=== PATIENT | female | born 1970 | race Caucasian/White ===

== ENCOUNTER 2019-10-17 14:16 | Emergency (ER) | payer BC, SELFPAY ==
[2019-10-17 14:40] VITALS: BP 140/96; PULSE 64; RESP 16; TEMP 36.5; O2SAT 99; BMI 47.9
[2019-10-17] MEDS: ketorolac 30 mg/mL INJ IVP (15:10)
--- NOTE | 2019-10-17 15:10 | CTR_ITS ---
PROCEDURE INFORMATION: Exam: CT Abdomen And Pelvis With Contrast Exam date and time: 10/17/2019 4:31 PM Age: 48 years old Clinical indication: Abdominal pain; Flank; Left; Prior surgery; Surgery date: 6+ months; Surgery type: Gb, gastric bypass; Additional info: Abd pain TECHNIQUE: Imaging protocol: Computed tomography of the abdomen and pelvis with intravenous contrast. Total DLP: 2114.31 mGy-cm Radiation optimization: All CT scans at this facility use at least one of these dose optimization techniques: automated exposure control; mA and/or kV adjustment per patient size (includes targeted exams where dose is matched to clinical indication); or iterative reconstruction. Contrast material: OMNI 300; Contrast volume: 95 ml; Contrast route: LT AC; COMPARISON: No relevant prior studies available. FINDINGS: Liver: 3.4 cm mildly hypodense solid mass subphrenic aspect of right hepatic lobe and posterior aspect of left hepatic lobe worrisome for primary or secondary neoplasms. Probable 9 and 10 mm hypodense left hepatic lobe cysts. Gallbladder and bile ducts: Prior cholecystectomy. Pancreas: Normal. No ductal dilation. Spleen: Spleen contains several calcified granulomas. Adrenals: Normal. No mass. Kidneys and ureters: Three obstructing stones proximal left ureter. Largest ureteral stone measures 1.1 cm. Mild left-sided hydronephrosis. Additional nonobstructing renal stones larger and more numerous on the left. Stomach and bowel: Prior gastric bypass surgery. No bowel dilatation or obstruction evident. Appendix: No evidence of appendicitis. Intraperitoneal space: Unremarkable. No free air. No significant fluid collection. Vasculature: Unremarkable. No abdominal aortic aneurysm. Lymph nodes: Unremarkable. No enlarged lymph nodes. Bladder: Unremarkable as visualized. Reproductive: Unremarkable as visualized. Bones/joints: Unremarkable. No acute fracture. Soft tissues: 7.6 x 10 cm fat containing umbilical hernia. Herniated fat displays areas of haziness and hernia sac contains some dependent fluid worrisome for strangulation. CT/CT abdomen pelvis w con* [id number] IMPRESSION: 1.) 7.6 x 10 cm fat containing umbilical hernia. Herniated fat displays areas of haziness and hernia sac contains some dependent fluid worrisome for strangulation. 2.)Three obstructing stones proximal left ureter. Largest ureteral stone measures 1.1 cm. Mild left-sided hydronephrosis. Additional nonobstructing renal stones larger and more numerous on the left. 3.)3.4 cm mildly hypodense solid mass subphrenic aspect of right hepatic lobe and posterior aspect of left hepatic lobe worrisome for primary or secondary neoplasms. Probable 9 and 10 mm hypodense left hepatic lobe cysts. 4.) Prior gastric bypass surgery. Radiation Dose CTDIVOL = (mGy): DLP = 2114.31 (mGy-cm)
[2019-10-17 15:13] VITALS: RESP 18
[2019-10-17 15:13] LABS: Basophils # 0.1 10^3/uL (0.0-0.1); Basophils % 0.8 %; Eosinophils # 0.1 10^3/uL (0.0-0.8); Eosinophils % 0.7 %; Hematocrit 44.8 % (37.0-47.0); Hemoglobin 14.8 g/dL (11.5-15.3); Lymphocytes # 3.7 10^3/uL (0.8-4.8); Lymphocytes % 30.1 %; Mean Corpuscular Hemoglobin 28.8 pg (28.0-34.0); Mean Corpuscular Volume 87.2 fL (81-99); Mean Platelet Volume 9.7 fL (7.4-10.4); Monocytes # 0.7 10^3/uL (0.2-0.9); Monocytes % 5.9 %; Neutrophils # 7.6 10^3/uL (1.8-7.7); Nucleated Red Blood Cells % 0 %; Platelet Count 327 10^3/cmm (130-400); Red Blood Count 5.14 10^6/uL (4.1-5.3); Red Cell Distribution Width 14.1 % (12.1-15.1); White Blood Count 12.3 10^3/uL (4.0-10.0)
[2019-10-17] MEDS: morphine 4 mg/mL SDV 1 mL IVP (15:13)
[2019-10-17] MEDS: sodium chloride 0.9% 1,000 ML 999 ML IV (15:13)
[2019-10-17] MEDS: ondansetron 2 mg/ML SDV 2 mL 4 MG IVP (15:13)
[2019-10-17 15:14] VITALS: RESP 18
--- NOTE | 2019-10-17 15:16 | ED_ITS ---
HPI - Abdominal Pain General: Chief Complaint: Urogenital-Female Stated Complaint: back and abd pain Time Seen by Provider: 10/17/19 14:26 History of Present Illness: HPI narrative: Patient states she had just finished eating some coleslaw and had sudden onset of severe abdominal pain in the epigastric region that radiated through to her back. MD elicited complaint: abdominal pain Pertinent past history: none Onset (ago): minute(s) Pain Consistency: constant Location: Epigastric Severity: severe Quality: stabbing, aching, sharp and burning Radiation: back Exacerbating factors: nothing Relieving factors: nothing Associated Symptoms: Reports nausea and vomiting Review of Systems 2 General: Reports: 10 or more systems reviewed and unremarkable except in HPI and below GI: Reports: abdominal pain, nausea and vomiting PFSH ED PFSH: Social History Smoking and tobacco status: never smoked Physical Exam Const: COMMON NORMALS: oriented x3 and alert GENERAL APPEARANCE: in distress and ill appearing Neck/C-Spine: COMMON NORMALS: no JVD Resp: COMMON NORMALS: normal respiratory effort, no retractions and no use of accessory muscles Cardio: COMMON NORMALS: no JVD, regular rate and regular rhythm RATE: regular rate RHYTHM: regular rhythm GI: COMMON NORMALS: soft to palpation and no hepatosplenomegaly INSPECTION: Yes central obesity AUSCULTATION: Yes normoactive bowel sounds PALPATION: Yes soft, Yes tender, Yes guarding, No rigid and Yes no hepatosplenomegaly Extremity: COMMON NORMALS: normal to inspection and full ROM Neuro: COMMON NORMALS: oriented x3 SENSORIUM/ORIENTATION: Yes alert Skin: COMMON NORMALS: no rashes or lesions noted, no wounds, skin turgor normal, no jaundice, no petechiae and no mottling GENERAL SKIN EXAM: no rashes or lesions noted and turgor normal Course Vital Signs: Vital signs: Vital Signs Temperature 97.7 F 10/17/19 14:40 Pulse Rate 64 10/17/19 14:40 Respiratory Rate 18 10/17/19 15:14 Blood Pressure 140/96 10/17/19 14:40 Pulse Oximetry 99 10/17/19 14:40 MDM - Abdominal Pain Lab Data: Labs: Lab Results 10/17/19 Range/Units 15:00 WBC 12.3 H (4.0-10.0) 10^3/ uL RBC 5.14 (4.1-5.3) 10^6/u L Hgb 14.8 (11.5-15.3) g/dL Hct 44.8 (37.0-47.0) % MCV 87.2 (81-99) fL MCH 28.8 (28.0-34.0) pg MCHC 33.0 (30.0-36.0) g/dL RDW 14.1 (12.1-15.1) % Plt Count 327 (130-400) 10^3/c mm MPV 9.7 (7.4-10.4) fL Neut % (Auto) 62.0 % Lymph % (Auto) 30.1 % Towns % (Auto) 5.9 % Eos % (Auto) 0.7 % Baso % (Auto) 0.8 % Neut # (Auto) 7.6 (1.8-7.7) 10^3/u L Lymph # (Auto) 3.7 (0.8-4.8) 10^3/u L Towns # (Auto) 0.7 (0.2-0.9) 10^3/u L Eos # (Auto) 0.1 (0.0-0.8) 10^3/u L Baso # (Auto) 0.1 (0.0-0.1) 10^3/u L Nucleated RBC % (a uto) 0 % Nucleated RBCs # 0.0 /100WBC Discharge Plan Discharge Prescriptions: No Action trazodone 100 mg tablet 100 mg PO DAILY RF: 0 Augmentin 875-125 mg Tablet 1 tab PO BID RF: 0 Celexa PO DAILY RF: 0 Coding Level of Care Code ED Senior [employer] Acquisition Specialist for Samantha Shaw
[2019-10-17 15:33] LABS: Alanine Aminotransferase 30 U/L (0-33); Albumin Level 4.3 g/dL (3.5-5.2); Alkaline Phosphatase 156 IU/L (35-105); Anion Gap 18.7 (5-19); Aspartate Amino Transferase 20 U/L (0-32); Blood Urea Nitrogen 15 mg/dL (6-20); Calcium 9.8 mg/dL (8.5-10.5); Carbon Dioxide 25 mmol/L (22-29); Chloride 100 mmol/L (98-107); Globulin 3.2 g/dL (1.3-4.6); Glomerular Filtration Rate 59.2 mL/min (90-130); Glucose 126 mg/dL (65-115); Lipase 25 U/L (13-60); Osmolality Calculated 288 mOsm/kg (285-295); Potassium 3.7 mmol/L (3.5-5.1); Sodium 140 mmol/L (136-145); Total Bilirubin 0.4 mg/dL (0.15-1.2); Total Protein 7.5 g/dL (6.6-8.7)
[2019-10-17 16:20] LABS: Lactate (Lactic Acid level) 2.5 mmol/L (0.5-2.2)
[2019-10-17] MEDS: iohexol 300 mg/mL 100 mL Btl IV (16:41)
[2019-10-17] MEDS: lidocaine 2% viscous 15 ML, aluminum-mag hydrox-simethicon 30 ML, sucralfate oral liq 1 GM PO (16:49)
[2019-10-17 17:44] VITALS: BP 128/83; PULSE 70; RESP 16; O2SAT 97
== END 2019-10-17 17:44 | disposition home or self-care (01) ==
PROVIDERS: Emergency Provider Family Medicine; Family Provider Family Medicine; PCP Family Medicine
DX: K29.00 Acute gastritis without bleeding (principal)
CPT/HCPCS: 12345; 36415; 74177; 80053; 83605; 83690; 85025; 87040; 96361; 96374; 96375; 99282; 99283; J1885; J2270; J2405; J7030; Q9967

== ENCOUNTER 2019-10-25 10:43 | Outpatient (CLI) | payer BC, SELFPAY ==
--- NOTE | 2019-10-25 | MR_ITS ---
WS: [id number] INDICATION: Liver mass TECHNIQUE: MRI of the abdomen without and with gadolinium enhancement. Axial T2, axial dual Echo, axi al 2-D fiesta, coronal 2-D fiesta, axial T1 and multiplanar post gadolinium imaging with fat saturati on technique FINDINGS: Comparison CT October 17, 2019 Again seen are the focal hepatic lesions involving the right hepatic lobe measuring 3.7 x 2.9 cm and left hepatic lobe posteriorly measuring 2.6 x 2.8 cm. These demonstrate T2 hyperintensity with periph eral globular enhancement on the postgadolinium images. Findings are most typical for benign cavernou s hemangiomas. No intrahepatic biliary ductal dilatation. A few additional scattered subcentimeter T2 hyperintense c ompatible with hepatic cysts and small hemangiomas. Normal spleen. Prior gastric bypass surgery. Adrenal glands are normal. Normal caliber abdominal aort a. No abdominal lymphadenopathy. Tiny bilateral pleural effusions. Small pericardial effusion. Mild l eft hydronephrosis with partially visualized obstructing calculus is seen on the recent CT MR/MR abdomen wo/w con* [id number] IMPRESSION: 1. Again seen are the 2 previously described right and left hepatic lesions wh ich today demonstrate characteristics most compatible with benign cavernous hem angiomas. This could be further evaluated with ultrasound for confirmation. Ot errodney recommend 3-6 month follow-up CT abdomen pelvis with liver protocol to c onfirm stability 2. Several additional tiny T2 hyperintense lesions in both hepatic lobes some of which appear to represent tiny cavernous hemangiomas and small hepatic cysts . 3. Mild left hydronephrosis with obstructing left ureteral calculus as seen on the recent CT. 4. Trace bilateral pleural effusions. 5. Small pericardial effusion.
== END 2019-10-25 10:44 | disposition home or self-care (01) ==
LOC: RADSHAW 10:43
PROVIDERS: Family Provider Family Medicine; PCP Family Medicine; Visit Provider Family Medicine
DX: K76.89 Other specified diseases of liver (principal); N13.30 Unspecified hydronephrosis; J90 Pleural effusion, not elsewhere classified; I31.3 Pericardial effusion (noninflammatory)
CPT/HCPCS: 74183; A9579

== ENCOUNTER 2019-10-28 08:02 | Outpatient (CLI) | payer BC, SELFPAY ==
--- NOTE | 2019-10-28 08:00 | XR_ITS ---
WS: [id number] ABDOMEN KUB CLINICAL INFORMATION: Renal/ureteral calculi. COMPARISON: CT October 17, 2019 postoperative changes at the GE junction. Left proximal ureteral calcul us FINDINGS: Stable large calculi in the left proximal ureter measuring 16 mm and 11 mm unchanged from recent CT. Stable left renal parenchymal calculi. Cholecystectomy clips. Postoperative changes the GE junction. XR/XR KUB [id number] Impression: Stable large calculus in the left proximal ureter measuring 16 mm and 11 mm unc hanged from recent CT.
== END 2019-10-28 08:03 | disposition home or self-care (01) ==
PROVIDERS: Family Provider Family Medicine; PCP Family Medicine; Visit Provider Urology
DX: N20.1 Calculus of ureter (principal)
CPT/HCPCS: 74018; 81001

== ENCOUNTER 2019-11-01 05:50 | Day surgery (SDC) | payer BC, SELFPAY ==
[2019-10-29 10:09] VITALS: BMI 47.1
[2019-11-01] VITALS (9 sets, daily range): BP systolic 125–156; BP diastolic 77–105; PULSE 56–93; RESP 20–23; TEMP 36.1–37.2; O2SAT 93–98
--- NOTE | 2019-11-01 06:11 | XR_ITS ---
WS: [id number] ABDOMEN: SUPINE FILM HISTORY: renal stones COMPARISON: 10/28/2019 and 10/16/2019 Normal bowel gas pattern. Prior cholecystectomy. Numerous surgical sutures are noted within the LEFT upper abdomen. Right kidney: No renal or ureteral stone identified. Left kidney: There are numerous calcifications again identified in the mid LEFT ureter. The largest m easures 19 mm in length. There is a smaller adjacent calcifications measuring 11 mm. These calcificat ions within the ureter at the level of L3-4. Additional calcifications unchanged scattered in the LEF T renal pelvis. There is an additional calcification in the LEFT pelvis that was not seen on the CT f rom 10/17/2019. May have been present on the radiograph of 10/28/2019 but better seen today. This calci fication measures 6 mm. XR/XR KUB portable [id number] IMPRESSION: 1. Large calcifications in the mid LEFT ureter are unchanged with the largest measuring 19 mm. 2. Additional 6 mm calcification in the LEFT true pelvis. May be a calcificati on that has migrated inferiorly into the ureter. 3. Additional nonobstructing LEFT renal calcifications.
--- NOTE | 2019-11-01 06:11 | ANES.PREANE2 ---
Pre-Anesthetic Assessment Pre-Anesthetic Assessment: Height/Weight: Height 1.73 m Weight 140.614 kg Preop Diagnosis: 2 large left mid ureteral calculi Proposed Procedure: Operation Date: 11/01/19 07:00 Proposed Procedures p Cystoscopy 01765 99382 N20.1 N20.0(Not Applicable) - MD dany Noonan Ureteral Stent Placement(Not Applicable) - MD dany Noonan ESWL(Not Applicable) - MD dany Noonan poss Ureteroscopy(Not Applicable) - Paul Slaughter MD Familial anesthetic complications: None Was Beta Michelle taken within 24 hours: N/A Last intake: NPO > 8 hrs Social: Social History: No alcohol and No tobacco Exam: Pre-Anes Outpt Exam: alert, oriented x 3, clear to auscultation bilaterally and regular rate & rhythm Airway: Cervical ROM: WNL Dentition: Full Pulmonary: Pulmonary: Asthma CV/HEM: CV/HEM: None reported : : None reported Hepatic: Hepatic: None reported GI: GI: None reported Metabolic: Metabolic: Morbid obesity Musc/skel: Musc/skel: None reported Neuropsych: Neuropsych: None reported Anesthetic Plan: ASA status: 2 Anesthesia: General Risk of > 500 ml blood loss (7ml/kg in children): No PFSH Anesthesia PFSH: Medical History (Updated 10/28/19 @ 09:42 by Paul Slaughter MD) Depression Left renal stone Morbid obesity Ureteral calculus Surgical History (Updated 10/28/19 @ 09:42 by Paul Slaughter MD) Gastric bypass status for obesity Hx of cholecystectomy Hx of laparoscopic gastric banding Hx of tonsillectomy Family History (Updated 10/28/19 @ 08:43 by Arminda Box LPN) Father , at age 66 Heart disease Mother Hypertension Emphysema of lung COPD (chronic obstructive pulmonary disease) Social History (Updated 10/28/19 @ 08:44 by Arminda Box LPN) Smoking and tobacco status: never smoked Alcohol intake: never Marital status: Current occupational status: employed History of recent travel: No Data Anesthesia Cardiac Studies: No Data to Display
[2019-11-01] MEDS: sodium chloride 0.9% 1,000 ML 30 ML IV (06:46)
[2019-11-01] MEDS: levofloxacin-dextrose 5 % 500 MG/100 ML PREMIX 100 MG IV (07:00)
--- NOTE | 2019-11-01 07:03 | W.PM.OPSUD ---
Surgery/Procedure H&P Update DATE OF PROCEDURE: November 01, 2019 DATE H&P PERFORMED: 10/28/19 H&P UPDATE INFORMATION: I have reviewed H&P completed within last 30 days and I have examined patient prior to procedure CHANGES TO PREVIOUS DOCUMENTATION: There is a small calcification that could be in the area of the left distal ureter. When compared to the CT scan there was no calcification in that area and or outside of the ureter. There was a hint of a smaller stone below the 2 larger stones in the left mid to proximal ureter. For that reason we will add retrograde ureteropyelogram to the procedure and consider ureteroscopy of that calcification if it is intraureteral and still proceed as expected with the larger proximal ureteral stones. I reviewed this with the patient and she was in agreement. This still fits within the boundaries of our prior consent. PREOP DIAGNOSIS: 2 large left mid ureteral calculi PLANNED PROCEDURE: Operation Date: 11/01/19 07:00 Proposed Procedures p Cystoscopy 78603 29917 N20.1 N20.0(Not Applicable) - Paul Slaughter MD s Ureteral Stent Placement(Not Applicable) - Paul Slaughter MD s ESWL(Not Applicable) - Paul Slaughter MD s poss Ureteroscopy(Not Applicable) - Paul Slaughter MD
[2019-11-01] MEDS: iohexol 300 mg/mL 50 mL Btl (OR ONLY) XX (07:31)
--- NOTE | 2019-11-01 08:26 | P.OP_ITS ---
Operative Report Date of procedure: November 01, 2019 Pre-op Diagnosis: 2 large left mid ureteral calculi Post-op Diagnosis: 1. 2 large left mid ureteral calculi 2. Moderate-sized left DISTAL ureteral calculus 3. 2 distinct stones in the left kidney (left lower pole, left midpole) Procedure Done: 1. Cystoscopy with left retrograde ureteropyelogram, ureteroscopy and stone manipulation. 2. Left ureteral stent placement (6 Wallisian by 30 cm double-pigtail without string) 3. Extracorporeal shockwave lithotripsy to 2 large left mid ureteral stones, left lower pole stone, left mid interpolar stone Implants: Left ureteral stent Pathology: Stone from the left distal ureter Surgeon: Kasandra Ict Trainer: Lithotripsy Photography Editor: Roby Fortune Anesthesia: General Estimated blood loss: None Urine output: Not measured Complications: None Findings: 1. The stone suspected on the preop KUB was confirmed with ureteroscopy and removed. 2. The 2 large stones broke up well. The more proximal stone migrated to the UPJ. The 2 left renal calculi noted on preop CT scan also broke up well. 3. Stent left indwelling at the completion of the procedure Condition: stable Disposition: PACU Brief History: Mrs. Rosario is a very pleasant 49-year-old white female who recently presented to my office with complaints of left renal colic with a large stone burden defined by 2 large stones in the left mid ureter and 2 stones in the left kidney. She was scheduled for cystoscopy, stent placement, possible ureteroscopy, ESWL. The preop KUB showed a suspicious calcification in the left DISTAL ureter that was when reevaluated not present on the CT scan. Plans were made on day of surgery to consider ureteroscopy if retrograde showed that stone to remove it while the other stones were being treated. Procedure: After routine preoperative evaluation examination and obtaining of informed consent she was taken to the operating suite on 11/01/2019 where general anesthesia was administered without difficulty after appropriate timeout was performed, SCDs confirmed to be functioning, preoperative antibiotics administered, beta-keya protocol confirmed. Prepped and draped in the usual sterile fashion in dorsolithotomy position pain careful attention to avoiding pressure points. 21 Wallisian cystoscope with 30 degree lens was introduced into the urethral meatus and advanced into the bladder under videoscopic. No stones were seen in the bladder. Bladder was grossly normal. An 8 Wallisian cone-tip catheter was intubated to the left ureter orifice for left retrograde ureteropyelogram: The left distal ureter showed a filling defect consistent with the stone seen on KUB. The ureter proximal to the stone was dilated. The more proximal stones were easily identified as intraluminal as expected A flexible tip guidewire was then easily passed up the left ureter into the up per pole calyx and the distal ureter was dilated with a 15 Wallisian 4 cm balloon with no waist at 4 elijah of pressure. Patient was repositioned such that the lower of the 2 stones was at the focal point utilizing biplanar fluoroscopy. It looked as though the more proximal of the 2 mid ureteral stones had migrated to the UPJ with passage of the guidewire. Treatment of the lower of the 2 stones was initiated. The distal ureteral stone was then addressed. The wire was secured to the drapes as a safety wire and a offset semirigid ureteroscope was advanced up the left ureter next to the guidewire where the stone was encountered in the DISTAL ureter secured and grasping forceps and removed without tension. Re-passage of the scope showed no additional stones but did show alot of fragments / sand already from the proximal ESWL. The scope was passed to just below the stone being treated and fragments could be seen breaking off during the treatment with ESWL. The stones were sequentially treated beginning with the lower of the mid ureteral stone and after significant change occurred at approximately 1200 shocks with what appeared to be complete fragmentation. The focal point was moved to the UPJ area with a stone that had migrated to that location. Because of the mid ureteral stone was out of the shock field of the kidney and additional 2500 shocks were administered to the 3 areas of stone more proximally including the UPJ larger stone, a smaller left lower pole stone, and a smaller left interpolar stone. All of these areas showed substantial change and possibly complete fragmentation. At the completion of the shockwave therapy she was awakened in the operating room and returned to the cover him in stable condition. PLANS: 1. Follow-up late this week with KUB and possible cystoscopy stent removal.
--- NOTE | 2019-11-01 08:42 | SUR.PHASEI ---
08 PATIENT TO PACU AT THIS TIME FROM OR. RR EVEN AND UNLABORED. ORAL AIRWAY IN PLACE, PLACED ON SIMPLE MASK AT 8L, SPO2 97%. RESTING COMFORTABLE ON GURNEY, WITH EYES CLOSED.
--- NOTE | 2019-11-01 08:48 | SUR.PHASEI ---
0848 ORAL AIRWAY REMOVED AT THIS TIME. SPO2 99% ON SIMPLE MASK AT 8L.
--- NOTE | 2019-11-01 09:09 | SUR.PHASEI ---
0906 PATIENT TO OPS AT THIS TIME. NO DISTRESS. DENIES PAIN.
[2019-11-04 22:26] LABS: Stone Source URETERAL STONE
== END 2019-11-01 10:15 | disposition home or self-care (01) ==
PROVIDERS: Family Provider Family Medicine; PCP Family Medicine; Visit Provider Urology
PROC: 0TJB8ZZ Inspection of Bladder, Via Natural or Artificial Opening Endoscopic (ICD-10-PCS; CPT 52000; principal; 2019-11-01 07:00)
PROC: (CPT 50605; 2019-11-01 07:00)
PROC: (CPT 50590; 2019-11-01 07:00)
PROC: 0TJ98ZZ Inspection of Ureter, Via Natural or Artificial Opening Endoscopic (ICD-10-PCS; CPT 52351; 2019-11-01 07:00)
PROC: (CPT 50590; 2019-11-01 07:00)
PROC: (CPT 74420; 2019-11-01 07:00)
DX: N20.1 Calculus of ureter (principal); J45.909 Unspecified asthma, uncomplicated; E66.01 Morbid (severe) obesity due to excess calories; Z68.42 Body mass index [BMI] 45.0-49.9, adult; Z98.84 Bariatric surgery status
CPT/HCPCS: 50590; 52332; 52352; 12345; 74018; 82365; 88300; C1725; C2625; J1100; J1956; J2001; J2405; J2704; J2710; J3010; J3490; J7030

== ENCOUNTER 2019-11-05 08:31 | Outpatient (CLI) | payer BC, SELFPAY ==
--- NOTE | 2019-11-05 08:36 | XR_ITS ---
WS: [id number] ABDOMEN: SUPINE FILM HISTORY: URETERAL CALCULUS COMPARISON: 11/01/2019 Status post cholecystectomy. Numerous surgical sutures and clips in the LEFT upper abdomen. Splenic g ranulomata. Normal bowel gas pattern. Right kidney: No renal or ureteral stone identified. Left kidney: Interval placement of a LEFT double pigtail ureteral stent. Numerous small calcific dens ities along the mid to distal ureteral stent. Stone burden within the kidney has decreased and the st ones are much more fragmented. Largest fragmented stone is 12 mm over the lower pole. XR/XR KUB [id number] IMPRESSION: 1. Interval placement of a double pigtail LEFT ureteral stent. 2. Numerous small ureteral calcifications along the mid to distal stent. 3. Numerous fragmented stones in the LEFT renal pelvis with decrease in stone burden.
== END 2019-11-05 08:32 | disposition home or self-care (01) ==
LOC: RAD 08:35
PROVIDERS: Family Provider Family Medicine; PCP Family Medicine; Visit Provider Urology
DX: N20.1 Calculus of ureter (principal); Z96.0 Presence of urogenital implants; N28.89 Other specified disorders of kidney and ureter; N20.0 Calculus of kidney
CPT/HCPCS: 74018

== ENCOUNTER 2019-11-11 07:06 | Outpatient (CLI) | payer BC, SELFPAY ==
--- NOTE | 2019-11-11 07:00 | XR_ITS ---
WS: [id number] XR KUB [id number] REASON FOR EXAM: URETERAL CALCULUS FINDINGS: A stent is seen in the left kidney down to the bladder positioning remains satisfactory unc hanged since 11/05/2019. There are stones seen in the left kidney. XR/XR KUB [id number] IMPRESSION: Good positioning of the stent on the left side from the kidney to the bladder. Surrounding the distal stent are calcified densities.
== END 2019-11-11 07:07 | disposition home or self-care (01) ==
LOC: RAD 07:09
PROVIDERS: PCP Family Medicine; Visit Provider Urology
DX: N20.1 Calculus of ureter (principal); Z96.0 Presence of urogenital implants; N20.0 Calculus of kidney
CPT/HCPCS: 74018; 81001; 82365

== ENCOUNTER 2019-11-25 08:12 | Outpatient (CLI) | payer BC, SELFPAY ==
--- NOTE | 2019-11-25 07:45 | XRR_ITS ---
PROCEDURE INFORMATION: Exam: XR Abdomen, 1 View Exam date and time: 11/25/2019 8:35 AM Age: 49 years old Clinical indication: Condition or disease; Kidney or ureter condition; Calculus (stone) in kidney; Prior surgery; Surgery date: <1 month; Surgery type: Stent; Additional info: Renal stone f/u TECHNIQUE: Imaging protocol: XR of the abdomen. Views: Frontal supine view of the abdomen. 1 View. COMPARISON: 1. CR XR KUB [id number] 11/11/2019 7:14 AM 2. CR - XR KUB [id number] 10/28/2019 8:12:20 AM FINDINGS: Gastrointestinal tract: No dilated gas-filled loops of bowel. Intraperitoneal space: Pre-existing surgical clips in the both upper quadrants with 1 clip in the pelvis. Prior bowel surgery in the left upper quadrant. Organs: Small left renal calculi versus fragments after ESWL. Interval passage of the stone fragments recently demonstrated in the distal left ureter ( steinstrasse ). Vasculature: Interval removal of the left double-J stent. Bones/joints: Facet arthropathy in the lower lumbar spine. XR/XR KUB [id number] IMPRESSION: 1. Interval passage of distal left ureteral stone fragments, and removal of the double-J stent. 2. Left nephrolithiasis/stone fragments.
== END 2019-11-25 08:13 | disposition home or self-care (01) ==
LOC: RAD 08:15
PROVIDERS: PCP Family Medicine; Visit Provider Nurse Practitioner Family
DX: N20.0 Calculus of kidney (principal); Z98.890 Other specified postprocedural states; Z46.6 Encounter for fitting and adjustment of urinary device
CPT/HCPCS: 74018; 81001

== ENCOUNTER → 2019-12-04 10:26 | Outpatient (BNVA) | payer BC, SELFPAY | PROVIDERS: PCP Family Medicine; Visit Provider Nurse Practitioner Family | DX: R31.9 Hematuria, unspecified (principal); N39.0 Urinary tract infection, site not specified | CPT/HCPCS: 80053; 81000 ==

== ENCOUNTER 2020-03-12 15:46 | Emergency (ER) | payer BC, SELFPAY ==
[2020-03-12 15:55] VITALS: BP 137/67; PULSE 75; RESP 16; TEMP 36.6; O2SAT 96; BMI 47.5
--- NOTE | 2020-03-12 15:56 | CTR_ITS ---
PROCEDURE INFORMATION: Exam: CT Abdomen And Pelvis Without Contrast Exam date and time: 03/12/2020 4:02 PM Age: 49 years old Clinical indication: Abdominal pain; Flank; Right; Prior surgery; Surgery date: 6+ months; Surgery type: Gb, gastric sleeve/bypass; Additional info: Flank/abdominal pain TECHNIQUE: Imaging protocol: Computed tomography of the abdomen and pelvis without contrast. Radiation optimization: All CT scans at this facility use at least one of these dose optimization techniques: automated exposure control; mA and/or kV adjustment per patient size (includes targeted exams where dose is matched to clinical indication); or iterative reconstruction. COMPARISON: CT abdomen pelvis w con* [id number] 10/17/2019 4:38 PM RADIATION DOSE METRICS: Total DLP (mGy-cm): 2220.15 FINDINGS: Liver: Normal. No mass. Gallbladder and bile ducts: Stable cholecystectomy. Pancreas: Normal. No ductal dilation. Spleen: Stable calcified splenic granulomas. Adrenals: Normal. No mass. Kidneys and ureters: Stable bilateral nonobstructing renal calyceal stones. Interval appearance of 3 mm stone in the right distal ureter, 1 cm from the right UVJ, with interval appearance of mild right hydronephrosis. Stomach and bowel: Stable gastric sleeve surgery. Appendix: Normal appendix. Intraperitoneal space: Unremarkable. No free air. No significant fluid collection. Vasculature: Unremarkable. No abdominal aortic aneurysm. Lymph nodes: Unremarkable. No enlarged lymph nodes. Bladder: Unremarkable as visualized. Reproductive: Unremarkable as visualized. Bones/joints: Large flowing multilevel hypertrophic vertebral body osteophytes consistent with diffuse idiopathic skeletal hyperostosis (DISH) syndrome. Soft tissues: Grossly stable 11.4 x 9.0 x 6.3 cm umbilical hernia containing fat and fluid with some continued inflammation in the fat suggesting possible ischemic fat or cellulitis. CT/CT kidney stone [id number] IMPRESSION: 1. Stable bilateral nonobstructing renal calyceal stones. 2. Normal appendix. 3. Interval appearance of 3 mm stone in the right distal ureter, 1 cm from the right UVJ, with interval appearance of mild right hydronephrosis. 4. Grossly stable 11.4 x 9.0 x 6.3 cm umbilical hernia containing fat and fluid with some continued inflammation in the fat suggesting possible ischemic fat or cellulitis. Radiation Dose CTDIVOL = (mGy): DLP = 2220.15 (mGy-cm)
[2020-03-12 16:06] VITALS: RESP 15
[2020-03-12] MEDS: sodium chloride 0.9% 1,000 ML 100 ML IV (16:06)
[2020-03-12] MEDS: HYDROmorphone 1 mg/mL INJ 1 mL 0.5 MG IVP (16:06)
[2020-03-12] MEDS: ondansetron 2 mg/ML SDV 2 mL 4 MG IVP (16:07)
--- NOTE | 2020-03-12 16:14 | PC.NURSE ---
PT to ct
[2020-03-12 16:16] LABS: Basophils # 0.1 10^3/uL (0.0-0.1); Basophils % 0.9 %; Eosinophils # 0.2 10^3/uL (0.0-0.8); Eosinophils % 2.4 %; Hematocrit 39.9 % (37.0-47.0); Hemoglobin 12.6 g/dL (11.5-15.3); Lymphocytes # 2.4 10^3/uL (0.8-4.8); Lymphocytes % 31.7 %; Mean Corpuscular HGB Conc 31.6 g/dL (30.0-36.0); Mean Corpuscular Hemoglobin 29.2 pg (28.0-34.0); Mean Corpuscular Volume 92.4 fL (81-99); Mean Platelet Volume 10.9 fL (7.4-10.4); Monocytes # 0.5 10^3/uL (0.2-0.9); Monocytes % 6.7 %; Neutrophils # 4.32 10^3/uL (1.8-7.7); Neutrophils % 57.8 %; Nucleated Red Blood Cells % 0 %; Platelet Count 207 10^3/cmm (130-400); Red Blood Count 4.32 10^6/uL (4.1-5.3); Red Cell Distribution Width 14.2 % (12.1-15.1); White Blood Count 7.5 10^3/uL (4.0-10.0)
[2020-03-12 16:33] LABS: Alanine Aminotransferase 18 U/L (0-33); Albumin Level 3.7 g/dL (3.5-5.2); Alkaline Phosphatase 133 IU/L (35-105); Anion Gap 11.4 (5-19); Aspartate Amino Transferase 22 U/L (0-32); Blood Urea Nitrogen 13 mg/dL (6-20); Calcium 8.7 mg/dL (8.5-10.5); Carbon Dioxide 25 mmol/L (22-29); Chloride 109 mmol/L (98-107); Globulin 2.6 g/dL (1.3-4.6); Glomerular Filtration Rate 88.9 mL/min (90-130); Glucose 84 mg/dL (65-115); Lipase 29 U/L (13-60); Osmolality Calculated 289 mOsm/kg (285-295); Potassium 3.4 mmol/L (3.5-5.1); Sodium 142 mmol/L (136-145); Total Bilirubin 0.4 mg/dL (0.15-1.2); Total Protein 6.3 g/dL (6.6-8.7)
--- NOTE | 2020-03-12 16:41 | ED_ITS ---
HPI - Abdominal Pain General: Chief Complaint: Abdominal Pain Stated Complaint: possible kidney stones Time Seen by Provider: 03/12/20 15:54 Source: patient Mode of arrival: ambulatory Limitations: no limitations History of Present Illness: HPI narrative: Lacey is a nice 49-year-old female who comes in complaining of right flank pain. Symptoms started about 1 hour prior to arrival here at the ER. She had associated nausea and vomiting. She states the pain radiates down to her groin. She has had similar pain in the past secondary to kidney stones. Denies any blood in her urine, dysuria, urinary frequency or urgency. She not had any fevers or chills. She denies any other complaints or concerns. She not tried anything home for this and is unaware of anything currently that makes her symptoms better or worse. Associated Symptoms: Denies chills, coffee ground emesis, constipation, GI cramping, diarrhea, dysuria, fever(s), heartburn, hematochezia, hematuria, hematemesis, melena, nausea, syncope and vomiting Review of Systems Const: Denies: fever(s), chills, body aches, fatigue, malaise or diaphoresis Eyes: Denies: change in vision, blurry vision, photophobia, eye discomfort, eye discharge or eye redness ENMT: Denies: throat pain, odynophagia, hoarseness, swelling of lips/tongue, ear or mastoid pain, ear discharge, change in hearing or nasal discharge Card: Denies: chest pain, palpitations, irregular heart rhythm, edema, lightheadedness, syncope, pre-syncope, dyspnea on exertion or orthopnea Resp: Denies: dyspnea, productive cough, non-productive cough, wheezing, hemoptysis or chest congestion GI: Denies: abdominal pain, nausea, vomiting, hematemesis, coffee ground emesis, heartburn, diarrhea, constipation, GI cramping, hematochezia or melena : Reports: flank pain; Denies: dysuria, urinary frequency, urinary urgency or hematuria Musc: Denies: neck pain, back pain, extremity pain, extremity swelling, joint pain, joint swelling, joint redness, joint warmth or joint stiffness Skin/Breast: Denies: rash, pruritus, erythema or skin tenderness Neuro: Denies: headache(s), numbness in extremities, weakness in extremities, sensory changes, lack of coordination, difficulty walking, dizziness, vertigo, confusion, Slurred speech present or seizure-like activity Naresh/Lymph: Denies: easy bruising, easy bleeding, petechiae, purpura or enlarged lymph nodes All/Imm: Denies: urticaria, throat swelling, tongue swelling, facial swelling or acute wheezing PFSH ED PFSH: Medical History Depression Left renal stone Morbid obesity Ureteral calculus Surgical History Gastric bypass status for obesity H/O lithotripsy Hx of cholecystectomy Hx of laparoscopic gastric banding Hx of tonsillectomy Family History Father , at age 66 Heart disease Mother Hypertension Emphysema of lung COPD (chronic obstructive pulmonary disease) Social History Smoking and tobacco status: never smoked Alcohol intake: never Marital status: Current occupational status: employed History of recent travel: No Physical Exam Const: COMMON NORMALS: no acute distress, patient oriented x3, no limitations, healthy appearing and well nourished GENERAL APPEARANCE: cooperative, well kempt and well developed HENMT: COMMON NORMALS: normocephalic, atraumatic, external ears normal, EAC's normal and Normal external nose present HEAD & SCALP: normal to inspection, normocephalic and atraumatic FACE & SINUS: normal facial exam and face symmetric NOSE: Normal external nose present and Normal nares present EXTERNAL EAR: Yes external ears normal EXTERNAL AUDITORY CANAL: EAC's normal MOUTH: Normal oral and palatal mucosa present, lip normal and tongue normal Eye: COMMON NORMALS: Equal, round and reactive pupils present and conjunctivae normal GENERAL EYE: appearance normal, both eyes and all related structures ALIGNMENT: Yes alignment normal PERIORBITAL: periorbital findings normal EYELID: eyelids normal CONJUNCTIVA: Yes conjunctivae normal SCLERA: sclerae normal PUPIL: Yes Equal, round and reactive pupils present Neck/C-Spine: COMMON NORMALS: full ROM, no lymphadenopathy, supple, no meningeal signs and no JVD GENERAL: Yes normal visual inspection and Yes trachea midline Chest: COMMONS NORMALS: normal inspection of the chest and normal palpation of entire chest wall Resp: COMMON NORMALS: normal respiratory effort, No retractions, No use of accessory muscles and clear to auscultation bilaterally EFFORT & INSPECTION: Yes able to speak in complete sentences and Yes symmetric chest movement AUSCULTATION: clear to auscultation bilaterally, no crackles, no rales, no rhonchi and no wheezes Cardio: COMMON NORMALS: no JVD, regular rate, regular rhythm, S1 normal heart sound present and S2 normal heart sound present RATE: regular rate RHYTHM: regular rhythm HEART SOUNDS: S1 normal heart sound present, S2 normal heart sound present, no click, no gallops, no murmurs, no rubs and abnormal split S2 GI: COMMON NORMALS: Soft to palpation and No hepatosplenomegaly present PALPATION: Yes Soft to palpation, No Tenderness to palpation present (GI), No Guarding due to palpation present (GI), No Rigid due to palpation, Yes No hepatosplenomegaly present, No Hernia present, No Palpable mass present and No Pulsatile mass present : COMMON NORMALS: Yes no CVA tenderness BLADDER/KIDNEY EXAM: Yes no CVA tenderness EXTERNAL FEMALE EXAM: No Hernia present Back/Pelvis: COMMON NORMALS: no CVA tenderness, thoracic and lumbar spine normal to inspection, no thoracic nor lumbar tenderness and thoraco-lumbar ROM normal Extremity: COMMON NORMALS: normal to inspection, full ROM, capillary refill normal, no joint enlargement, no clubbing, cyanosis or edema and no calf tenderness Neuro: COMMON NORMALS: patient oriented x3, CN's II-XII intact bilaterally, moves all extremities, no focal motor deficits and no sensory deficits noted MENINGEAL SIGNS: Yes no meningeal signs SPEECH: speech normal Psych: COMMON NORMALS: mental status grossly normal, Normal thought process present, cooperative, normal affect, speech normal and activity/motor behavior normal APPEARANCE: Yes well kempt SPEECH: Yes normal speech THOUGHT P ROCESS: Normal thought process present Skin: COMMON NORMALS: no rashes or lesions noted, turgor normal, no jaundice, no petechiae and no mottling GENERAL SKIN EXAM: no rashes or lesions noted and turgor normal Course Vital Signs: Vital signs: Vital Signs Temperature 98 F 03/12/20 15:55 Pulse Rate 88 03/12/20 17:36 Respiratory Rate 18 03/12/20 17:36 Blood Pressure 120/78 03/12/20 17:36 Pulse Oximetry 96 03/12/20 17:36 MDM - Abdominal Pain MDM Narrative: Medical decision making narrative: Patient has a stone in the distal right ureter. The finding of her umbilical hernia is chronic. She has no pain in this area. I reviewed the case with Dr. Aguila and he agrees to follow-up with the patient. Patient will be discharged home with there is no sign of infection at this time clinically the patient has no sign of infection. Will discharge patient home as long as her urine comes back without infection. Lab Data: Attestation: I reviewed the patient's lab results. Labs: Lab Results 03/12/20 03/12/20 03/12/20 Range/Units 16:00 16:00 16:00 WBC 7.5 (4.0-10.0) 10^3/ uL RBC 4.32 (4.1-5.3) 10^6/u L Hgb 12.6 (11.5-15.3) g/dL Hct 39.9 (37.0-47.0) % MCV 92.4 (81-99) fL MCH 29.2 (28.0-34.0) pg MCHC 31.6 (30.0-36.0) g/dL RDW 14.2 (12.1-15.1) % Plt Count 207 (130-400) 10^3/c mm MPV 10.9 H (7.4-10.4) fL Neut % (Auto) 57.8 % Lymph % (Auto) 31.7 % [place] % (Auto) 6.7 % Eos % (Auto) 2.4 % Baso % (Auto) 0.9 % Neut # (Auto) 4.32 (1.8-7.7) 10^3/u L Lymph # (Auto) 2.4 (0.8-4.8) 10^3/u L [place] # (Auto) 0.5 (0.2-0.9) 10^3/u L Eos # (Auto) 0.2 (0.0-0.8) 10^3/u L Baso # (Auto) 0.1 (0.0-0.1) 10^3/u L Nucleated RBC % (a uto) 0 % Nucleated RBCs # 0.0 /100WBC Sodium 142 (136-145) mmol/L Potassium 3.4 L (3.5-5.1) mmol/L Chloride 109 H (98-107) mmol/L Carbon Dioxide 25 (22-29) mmol/L Anion Gap 11.4 (5-19) BUN 13 (6-20) mg/dL Creatinine 0.7 (0.5-0.9) mg/dL GFR Calculation 88.9 L (90-130) mL/min Glucose 84 (65-115) mg/dL Calculated Osmolal ity 289 (285-295) mOsm/k g Calcium 8.7 (8.5-10.5) mg/dL Total Bilirubin 0.4 (0.15-1.2) mg/dL AST 22 (0-32) U/L ALT 18 (0-33) U/L Alkaline Phosphata se 133 H (35-105) IU/L Total Protein 6.3 L (6.6-8.7) g/dL Albumin 3.7 (3.5-5.2) g/dL Globulin 2.6 (1.3-4.6) g/dL Lipase 29 (13-60) U/L HCG, Qual Negative (Negative) Imaging Data ^: CT Abd/Pel: Radiologist's impression: [place] [address] CT Scan Report Signed Patient: Lacey Rosario Unit #: [id number] : 1970 Age/Sex: 49 / F ADM Date: 03/12/20 Loc: ER Room/Bed: Attending Dr: Ordering Provider/Ordering MD: Soraida Wilson DO Date of Service: 03/12/20 Procedure(s): CT kidney stone 92416 Accession Number(s): [id number] Report Number: [id number] PROCEDURE INFORMATION: Exam: CT Abdomen And Pelvis Without Contrast Exam date and time: 03/12/2020 4:02 PM Age: 49 years old Clinical indication: Abdominal pain; Flank; Right; Prior surgery; Surgery date: 6+ months; Surgery type: Gb, gastric sleeve/bypass; Additional info: Flank/abdominal pain TECHNIQUE: Imaging protocol: Computed tomography of the abdomen and pelvis without contrast. Radiation optimization: All CT scans at this facility use at least one of these dose optimization techniques: automated exposure control; mA and/or kV adjustment per patient size (includes targeted exams where dose is matched to clinical indication); or iterative reconstruction. COMPARISON: CT abdomen pelvis w con* [id number] 10/17/2019 4:38 PM RADIATION DOSE METRICS: Total DLP (mGy-cm): 2220.15 FINDINGS: Liver: Normal. No mass. Gallbladder and bile ducts: Stable cholecystectomy. Pancreas: Normal. No ductal dilation. Spleen: Stable calcified splenic granulomas. Adrenals: Normal. No mass. Kidneys and ureters: Stable bilateral nonobstructing renal calyceal stones. Interval appearance of 3 mm stone in the right distal ureter, 1 cm from the right UVJ, with interval appearance of mild right hydronephrosis. Stomach and bowel: Stable gastric sleeve surgery. Appendix: Normal appendix. Intraperitoneal space: Unremarkable. No free air. No significant fluid collection. Vasculature: Unremarkable. No abdominal aortic aneurysm. Lymph nodes: Unremarkable. No enlarged lymph nodes. Bladder: Unremarkable as visualized. Reproductive: Unremarkable as visualized. Bones/joints: Large flowing multilevel hypertrophic vertebral body osteophytes consistent with diffuse idiopathic skeletal hyperostosis (DISH) syndrome. Soft tissues: Grossly stable 11.4 x 9.0 x 6.3 cm umbilical hernia containing fat and fluid with some continued inflammation in the fat suggesting possible ischemic fat or cellulitis. CT/CT kidney stone [id number] IMPRESSION: 1. Stable bilateral nonobstructing renal calyceal stones. 2. Normal appendix. 3. Interval appearance of 3 mm stone in the right distal ureter, 1 cm from the right UVJ, with interval appearance of mild right hydronephrosis. 4. Grossly stable 11.4 x 9.0 x 6.3 cm umbilical hernia containing fat and fluid with some continued inflammation in the fat suggesting possible ischemic fat or cellulitis. Radiation Dose CTDIVOL = (mGy): DLP = 2220.15 (mGy-cm) Dictated By: Moreno Castro MD Signed By: Moreno Castro MD Signed Date/Time: 03/12/201658 DD/ 57 Discharge Plan Discharge Patient Disposition: Home Clinical Impression: Ureteral calculus Condition: Stable Prescriptions: [place] 5-325 mg tablet 1 tab PO Q6H PRN (Reason: pain) 5 Days Qty: 20 RF: 0 Zofran 4 mg tablet 4 mg PO Q6H PRN (Reason: nausea and vomiting) Qty: 20 RF: 0 cefdinir 300 mg capsule 300 mg PO Q12H 10 Days Qty: 20 RF: 0 No Action hydrocodone-acetaminophen 5-325 mg tablet 1 tab PO BID PRN (Reason: Pain) RF: 0 citalopram [Celexa] 20 mg Tablet 20 mg PO DAILY RF: 0 trazodone 100 mg tablet 100 mg PO BEDTIME RF: 0 famotidine [Pepcid] 40 mg tablet 40 mg PO BID Qty: 60 RF: 0 Discharge Orders: Discharge Order (Routine); Ordered 03/12/20 Ordered By: Soraida Wilson Referrals: Thanh Hall MD [Primary Care Provider] - 1-3 days Discharge Diet: Advance as tolerated Discharge Activity: Increase activity as tolerated Patient Instructions: Renal Colic (ED) Activity Restrictions/Additional Instructions: Please return to the ER immediately for any of the signs or symptoms listed on your discharge instruction sheets, worsening/changing of your symptoms, you are not getting better as quickly as expected, or for ANY other cause or concerns. Return to the ER for uncontrolled pain, fever, vomiting, or for any other cause for concern. Coding Level of Care Code ED Improvement Rn for Samantha Fwd Exam Comprehensive
[2020-03-12 16:44] LABS: HCG, Serum Qual Negative (Negative)
[2020-03-12 17:36] VITALS: BP 120/78; PULSE 88; RESP 18; O2SAT 96
[2020-03-12 18:29] LABS: Urine Appearance SL Hazy (CLEAR); Urine Color Orange (Yellow)
[2020-03-12 18:35] LABS: Sulfosalicylic Acid Urine Negative (Negative)
[2020-03-12 18:36] VITALS: BP 122/72; PULSE 88; RESP 18; O2SAT 98
[2020-03-12 18:36] LABS: Bacteria Urine 2+; RBC Urine 25-40 /hpf (0-2); Squamous Epithelial Cell Urine 15-25 (0-5); WBC Urine 15-25 /hpf (0-5)
[2020-03-12 18:37] LABS: Add Urine Culture? No; Mucus Urine 2+
[2020-03-12 19:10] VITALS: BP 122/72; PULSE 88; RESP 18; O2SAT 98
== END 2020-03-12 19:11 | disposition home or self-care (01) ==
PROVIDERS: Emergency Provider Emergency Medicine; PCP Family Medicine
DX: N20.1 Calculus of ureter (principal)
CPT/HCPCS: 12345; 74176; 80053; 81001; 83690; 84703; 85025; 96361; 96374; 96375; 99283; 99284; J1170; J2405; J7030

== ENCOUNTER 2020-03-22 17:51 | Outpatient (CLI) | payer BC, SELFPAY ==
[2020-03-24 02:39] LABS: Coronavirus Lab Test PTC Negative
== END 2020-03-22 17:52 | disposition home or self-care (01) ==
PROVIDERS: PCP Family Medicine; Visit Provider Family Medicine
DX: Z20.828 Contact with and (suspected) exposure to other viral communicable diseases (principal)
CPT/HCPCS: 87635

== ENCOUNTER 2021-02-05 03:19 | Emergency (ER) | payer BC, SELFPAY ==
[2021-02-05 03:25] VITALS: BMI 48.7
--- NOTE | 2021-02-05 03:28 | XRR_ITS ---
PROCEDURE INFORMATION: Exam: XR Chest Exam date and time: 02/05/2021 3:28 AM Age: 50 years old Clinical indication: Pain; Chest pressure; Additional info: Cp TECHNIQUE: Imaging protocol: XR of the chest. Views: 1 view. COMPARISON: CR Ribs RIGHT* [id number] 02/19/2018 7:35 AM FINDINGS: Lungs: Unremarkable. No consolidation. Pleural spaces: Unremarkable. No pleural effusion. No pneumothorax. Heart/Mediastinum: Stable cardiomediastinal silhouette. Bones/joints: Unremarkable. XR/XR chest 1V portable [id number] IMPRESSION: No evidence of active cardiopulmonary disease.
--- NOTE | 2021-02-05 03:45 | PC.NURSE ---
re: cardiology apt. mom was diagnosed with heart issues and dad at 66 with heart issues so shes trying to be proactive with her heart.
[2021-02-05 03:46] VITALS: BP 143/95; PULSE 88; RESP 16; O2SAT 97
[2021-02-05 03:49] LABS: Basophils # 0.1 10^3/uL (0.0-0.1); Basophils % 0.9 %; Eosinophils # 0.2 10^3/uL (0.0-0.8); Eosinophils % 2.5 %; Hematocrit 45.1 % (37.0-47.0); Hemoglobin 14.4 g/dL (11.5-15.3); Lymphocytes # 3.6 10^3/uL (0.8-4.8); Lymphocytes % 47.5 %; Mean Corpuscular HGB Conc 31.9 g/dL (30.0-36.0); Mean Corpuscular Hemoglobin 29.1 pg (28.0-34.0); Mean Corpuscular Volume 91.1 fL (81-99); Mean Platelet Volume 10.7 fL (7.4-10.4); Monocytes # 0.5 10^3/uL (0.2-0.9); Monocytes % 6.1 %; Neutrophils # 3.21 10^3/uL (1.8-7.7); Neutrophils % 42.7 %; Nucleated Red Blood Cells % 0 %; Platelet Count 237 10^3/cmm (130-400); Red Blood Count 4.95 10^6/uL (4.1-5.3); Red Cell Distribution Width 14.5 % (12.1-15.1); White Blood Count 7.5 10^3/uL (4.0-10.0)
[2021-02-05 04:06] LABS: Troponin(5th) Baseline 6 ng/L (0-10)
[2021-02-05 04:16] LABS: Alanine Aminotransferase 19 U/L (0-33); Alkaline Phosphatase 155 IU/L (35-105); Aspartate Amino Transferase 18 U/L (0-32); Blood Urea Nitrogen 10 mg/dL (6-20); Calcium 8.6 mg/dL (8.5-10.5); Carbon Dioxide 27 mmol/L (22-29); Chloride 108 mmol/L (98-107); Creatine Phosphokinase 56 U/L (26-192); Globulin 2.3 g/dL (1.3-4.6); Glomerular Filtration Rate 88.6 mL/min (90-130); Glucose 93 mg/dL (65-115); NT Pro B Type Natriuretic Pept 202 pg/mL (0-125); Osmolality Calculated 299 mOsm/kg (285-295); Sodium 145 mmol/L (136-145); Total Bilirubin 0.3 mg/dL (0.15-1.2); Total Protein 6.3 g/dL (6.6-8.7)
[2021-02-05 04:28] LABS: INR 1.03 (0.8-1.2)
[2021-02-05 04:31] LABS: D Dimer <= 0.27 ug/mIFEU (0-0.59)
--- NOTE | 2021-02-05 05:24 | PC.NURSE ---
pt let herself up to the bathroom while I was discharging another patient.
[2021-02-05 05:25] VITALS: BP 115/90; PULSE 99; RESP 19; TEMP 36.6; O2SAT 96
--- NOTE | 2021-02-05 05:29 | ECG_ITS ---
[facility] ED Test Date: 2021-02-05 Pat Name: Lacey Rosario Department: Room: Gender: Female Computer Field Technician: : 1970 Requested By: Edward Russ Order Number: [id number] Virgie MD: Ginger Pratt M.D. Measurements Intervals [place] Rate: 102 P: DC: QRS: 2 QRSD: 109 T: -1 QT: 365 QTc: 476 Interpretive Statements ATRIAL FIBRILLATION WITH RAPID VENTRICULAR RESPONSE POSSIBLE ANTERIOR MYOCARDIAL INFARCTION [30 ms Q WAVE IN V3/V4, OR R < 0.2 mV IN V4], PROBABLY OLD ABNORMAL RHYTHM ECG No previous ECG available for comparison Electronically Signed On 02-08-2021 12:41:51 CDT by Ginger Pratt M.D. [id number]
[2021-02-05 05:30] VITALS: BP 123/86; PULSE 94; O2SAT 97
--- NOTE | 2021-02-05 05:33 | ED_ITS ---
HPI - Chest Pain General: Chief Complaint: Chest Pain Stated Complaint: CP Time Seen by Provider: 02/05/21 04:21 History of Present Illness: HPI narrative: 50-year-old female who after waking to take the dogs out early in the morning felt some palpitations in her chest. She had a mild heaviness. She does not call this pain. She is not overly short of breath. She is not coughing. No history of fever. No leg swelling. She has had this sensation before, and has an outpatient cardiology appointment set up MD complaint: chest discomfort and other (Palpitations) Pertinent past history: other Onset (ago): hour(s) Timing of current episode: constant Prior episodes: Yes Onset: during rest Pain location: substernal Pain radiation: none Severity: similar to previous episodes Quality: other Relieving factors: nothing Exacerbating factors: nothing Associated symptoms: Reports palpitations; Deny abdominal pain, diaphoresis, dyspnea, fever(s), nausea or vomiting Treatment prior to arrival: none Review of Systems Const: Denies: fever(s) or diaphoresis Card: Reports: palpitations Resp: Denies: dyspnea GI: Denies: abdominal pain, nausea or vomiting PENDING SALE TO [facility] ED PFSH: Medical History (Updated 02/05/21 @ 07:10 by Edward Sorto DO) Depression Left renal stone Morbid obesity Umbilical hernia, incarcerated Ureteral calculus Surgical History Gastric bypass status for obesity H/O lithotripsy Hx of cholecystectomy Hx of laparoscopic gastric banding Hx of tonsillectomy Family History Father , at age 66 Heart disease Mother Hypertension Emphysema of lung COPD (chronic obstructive pulmonary disease) Social History Smoking and tobacco status: never smoked Alcohol intake: never Marital status: Current occupational status: employed History of recent travel: No Physical Exam Const: COMMON NORMALS: no acute distress, patient oriented x3 and alert HENMT: COMMON NORMALS: normocephalic HEAD & SCALP: normocephalic Chest: COMMONS NORMALS: normal inspection of the chest Resp: COMMON NORMALS: normal respiratory effort, No use of accessory muscles and clear to auscultation bilaterally AUSCULTATION: clear to auscultation bilaterally Cardio: COMMON NORMALS: regular rate and Peripheral pulses 2+ throughout RATE: regular rate RHYTHM: abnormal rhythm irregularly irregular PERIPHERAL PULSES: Peripheral pulses 2+ throughout GI: COMMON NORMALS: Normal to inspection, nondistended, normoactive bowel sounds present, Soft to palpation and no masses PALPATION: Yes Soft to palpation Neuro: COMMON NORMALS: patient oriented x3 SENSORIUM/ORIENTATION: Yes alert Course Vital Signs: Vital signs: Vital Signs Temperature 98.1 F 02/05/21 06:00 Pulse Rate 76 02/05/21 06:00 Respiratory Rate 16 02/05/21 06:00 Blood Pressure 101/77 02/05/21 06:00 Pulse Oximetry 97 02/05/21 06:00 MDM - Chest Pain MDM Narrative: Medical decision making narrative: Palpitations are improved. Patient was given 2.5 mg of metoprolol. Her rate is 75. Still slightly irregular with atrial fibrillation on the monitor. Other vitals are normal. Her troponin did not rise. It remained 6 at 2 hours. Her other labs are essentially normal. Her TSH is minimally elevated. She was counseled on this. She has had gastric surgery, and was told not to take NSAIDs. She will obtain enteric-coated aspirin, and be on metoprolol. She will keep her cardiology follow-up. Lab Data: Labs: Lab Results 02/05/21 02/05/21 02/05/21 Range/Units 03:39 03:39 03:39 WBC 7.5 (4.0-10.0) 10^3/ uL RBC 4.95 (4.1-5.3) 10^6/u L Hgb 14.4 (11.5-15.3) g/dL Hct 45.1 (37.0-47.0) % MCV 91.1 (81-99) fL MCH 29.1 (28.0-34.0) pg MCHC 31.9 (30.0-36.0) g/dL RDW 14.5 (12.1-15.1) % Plt Count 237 (130-400) 10^3/c mm MPV 10.7 H (7.4-10.4) fL Neut % (Auto) 42.7 % Lymph % (Auto) 47.5 % [place] % (Auto) 6.1 % Eos % (Auto) 2.5 % Baso % (Auto) 0.9 % Neut # (Auto) 3.21 (1.8-7.7) 10^3/u L Lymph # (Auto) 3.6 (0.8-4.8) 10^3/u L [place] # (Auto) 0.5 (0.2-0.9) 10^3/u L Eos # (Auto) 0.2 (0.0-0.8) 10^3/u L Baso # (Auto) 0.1 (0.0-0.1) 10^3/u L Nucleated RBC % (a uto) 0 % Nucleated RBCs # 0.0 /100WBC PT (12.1-14.9) SECO NDS INR (0.8-1.2) APTT (23.9-36.7) SECO NDS D-Dimer (0-0.59) ug/mIFE U Sodium 145 (136-145) mmol/L Potassium 4.0 (3.5-5.1) mmol/L Chloride 108 H (98-107) mmol/L Carbon Dioxide 27 (22-29) mmol/L Anion Gap 14.0 (5-19) BUN 10 (6-20) mg/dL Creatinine 0.7 (0.5-0.9) mg/dL GFR Calculation 88.6 L (90-130) mL/min Glucose 93 (65-115) mg/dL Calculated Osmolal ity 299 H (285-295) mOsm/k g Calcium 8.6 (8.5-10.5) mg/dL Total Bilirubin 0.3 (0.15-1.2) mg/dL AST 18 (0-32) U/L ALT 19 (0-33) U/L Alkaline Phosphata se 155 H (35-105) IU/L Creatine Kinase 56 (26-192) U/L Troponin T Baselin e 6 (0-10) ng/L Troponin T 120 Min [place]ona (0-10) ng/L Delta Troponin T (0-10) ABS# NT-Pro-B Natriuret Pep 202 H (0-125) pg/mL Total Protein 6.3 L (6.6-8.7) g/dL Albumin 4.0 (3.5-5.2) g/dL Globulin 2.3 (1.3-4.6) g/dL TSH (0.27-4.20) uIU/ mL 02/05/21 02/05/21 02/05/21 Range/Units 04:02 05:37 05:37 WBC (4.0-10.0) 10^3/ uL RBC (4.1-5.3) 10^6/u L Hgb (11.5-15.3) g/dL Hct (37.0-47.0) % MCV (81-99) fL MCH (28.0-34.0) pg MCHC (30.0-36.0) g/dL RDW (12.1-15.1) % Plt Count (130-400) 10^3/c mm MPV (7.4-10.4) fL Neut % (Auto) % Lymph % (Auto) % [place] % (Auto) % Eos % (Auto) % Baso % (Auto) % Neut # (Auto) (1.8-7.7) 10^3/u L Lymph # (Auto) (0.8-4.8) 10^3/u L [place] # (Auto) (0.2-0.9) 10^3/u L Eos # (Auto) (0.0-0.8) 10^3/u L Baso # (Auto) (0.0-0.1) 10^3/u L Nucleated RBC % (a uto) % Nucleated RBCs # /100WBC PT 13.80 (12.1-14.9) SECO NDS INR 1.03 (0.8-1.2) APTT 30.0 (23.9-36.7) SECO NDS D-Dimer <= 0.27 (0-0.59) ug/mIFE U Sodium (136-145) mmol/L Potassium (3.5-5.1) mmol/L Chloride (98-107) mmol/L Carbon Dioxide (22-29) mmol/L Anion Gap (5-19) BUN (6-20) mg/dL Creatinine (0.5-0.9) mg/dL GFR Calculation (90-130) mL/min Glucose (65-115) mg/dL Calculated Osmolal ity (285-295) mOsm/k g Calcium (8.5-10.5) mg/dL Total Bilirubin (0.15-1.2) mg/dL AST (0-32) U/L ALT (0-33) U/L Alkaline Phosphata se (35-105) IU/L Creatine Kinase (26-192) U/L Troponin T Baselin e (0-10) ng/L Troponin T 120 Min simona 6.00 (0-10) ng/L Delta Troponin T 0 (0-10) ABS# NT-Pro-B Natriuret Pep (0-125) pg/mL Total Protein (6.6-8.7) g/dL Albumin (3.5-5.2) g/dL Globulin (1.3-4.6) g/dL TSH 5.54 H (0.27-4.20) uIU/ mL Discharge Plan Discharge Patient Disposition: Home Clinical Impression: Atrial fibrillation Qualifiers: Atrial fibrillation type: unspecified Qualified Code(s): I48.91 - Unspecified atrial fibrillation Condition: Stable Prescriptions: New aspirin 325 mg tablet,delayed release (DR/EC) 325 mg PO DAILY Qty: 30 RF: 0 metoprolol tartrate 25 mg tablet 25 mg PO BID Qty: 60 RF: 0 No Action hydrocodone-acetaminophen 5-325 mg tablet 1 tab PO BID PRN (Reason: Pain) RF: 0 citalopram [Celexa] 20 mg Tablet 20 mg PO DAILY RF: 0 trazodone 100 mg tablet 100 mg PO BEDTIME RF: 0 famotidine [Pepcid] 40 mg tablet 40 mg PO BID Qty: 60 RF: 0 Zofran 4 mg tablet 4 mg PO Q6H PRN (Reason: nausea and vomiting) Qty: 20 RF: 0 Discharge Orders: Discharge ED (Routine); Ordered 02/05/21 Ordered By: Edward Sorto Referrals: Thanh Hall MD [Primary Care Provider] - 1-3 days Discharge Diet: Advance as tolerated Discharge Activity: Increase activity as tolerated Patient Instructions: Atrial Fibrillation (ED) Activity Restrictions/Additional Instructions: Return for worsening chest discomfort, shortness of breath, worsening palpitations despite treatment, fever, any other concerning symptoms. Medication as directed. Follow-up with your doctor, and keep your cardiology appointment for further evaluation. Coding Level of Care Code ED Train System Operator for Chg Fwd Exam Detailed
[2021-02-05] MEDS: metoprolol tartrate 1 mg/1 mL SDV 5 mL 2.5 MG IV (05:38)
[2021-02-05 06:00] VITALS: BP 101/77; PULSE 76; RESP 16; TEMP 36.7; O2SAT 97
[2021-02-05 06:24] LABS: Troponin 5 2HR Delta 0 ABS# (0-10)
[2021-02-05 06:38] LABS: Thyroid Stimulating Hormone 5.54 uIU/mL (0.27-4.20)
[2021-02-05 07:24] VITALS: BP 101/77; PULSE 74; RESP 16; TEMP 36.8; O2SAT 97
== END 2021-02-05 07:25 | disposition home or self-care (01) ==
PROVIDERS: Emergency Provider Emergency Medicine; PCP Family Medicine
DX: I48.91 Unspecified atrial fibrillation (principal)
CPT/HCPCS: 71045; 80053; 82550; 83880; 84443; 84484; 85025; 85378; 85610; 85730; 93005; 96374; 99284; J3490

== ENCOUNTER → 2021-03-19 08:29 | Outpatient (BNVA) | payer BC, SELFPAY | PROVIDERS: PCP Family Medicine; Visit Provider Surgery | DX: Z20.822 Contact with and (suspected) exposure to COVID-19 (principal) | CPT/HCPCS: 87635 ==

== ENCOUNTER 2021-03-22 08:42 | Day surgery (SDC) | payer BC, SELFPAY ==
[2021-03-19 13:10] VITALS: BMI 49.4
[2021-03-22] MEDS: sodium chloride 0.9% 1,000 ML 30 ML IV (09:27)
[2021-03-22 09:30] VITALS: BP 141/97; PULSE 52; RESP 18; TEMP 36.7; O2SAT 99
--- NOTE | 2021-03-22 09:38 | P.ANESASSM_ITS ---
Pre-Anesthetic Assessment Pre-Anesthetic Assessment: Height/Weight: Height 1.73 m Weight 147.418 kg Temp Pulse Resp BP Pulse Ox 98.1 F 52 L 18 141/97 99 03/22/21 09:30 03/22/21 09:30 03/22/21 09:30 03/22/21 09:30 03/22/21 09:30 Preop Diagnosis: screening colonoscopy Proposed Procedure: Operation Date: 03/22/21 10:15 Proposed Procedures p Colonoscopy 58398 z12.11(Not Applicable) - Mitchell Aguila MD Was Beta Michelle taken within 24 hours: Yes Was Clonidine taken within 24 hours: N/A Last intake: Intake Last Liquid Date 03/21/21 Last Liquid Time 17:00 Last Solid Date 03/20/21 Social: Social History: No alcohol and No tobacco Exam: Pre-Anes Outpt Exam: alert, oriented x 3 and clear to auscultation bilaterally Airway: Submandibular: WNL Cervical ROM: WNL MP: 2 Dentition: Full CV/HEM: CV/HEM: Afib Metabolic: Metabolic: Morbid obesity Neuropsych: Neuropsych: Anxiety and Depression Anesthetic Plan: ASA status: 3 Anesthesia: MAC Risk of > 500 ml blood loss (7ml/kg in children): No Meds/Allergies Current Medications: Current Medications Generic Name Dose Route Start Last Admin Trade Name Freq PRN Reason Stop Dose Admin Sodium Chloride 1,000 mls @ 30 ml s/hr 03/22/21 09:15 03/22/21 09:27 Sodium Chloride 0.9% IV 03/23/21 09:14 30 mls/hr .Q24H DAVID Administration PFSH Anesthesia 2 PFSH: Medical History (Updated 02/13/21 @ 00:00 by ) Depression Left renal stone Morbid obesity Umbilical hernia, incarcerated Ureteral calculus Surgical History Gastric bypass status for obesity H/O lithotripsy Hx of cholecystectomy Hx of laparoscopic gastric banding Hx of tonsillectomy Family History Father , at age 66 Heart disease Mother Hypertension Emphysema of lung COPD (chronic obstructive pulmonary disease) Social History Smoking and tobacco status: never smoked Alcohol intake: never Marital status: Current occupational status: employed History of recent travel: No Data Anesthesia Cardiac Studies: No Data to Display
--- NOTE | 2021-03-22 10:28 | W.PM.OPSFHP ---
Same Day Surgery H&P Indication for Procedure/HPI DATE OF PROCEDURE: March 22, 2021 CHIEF COMPLAINT/INDICATIONFOR SURGICAL PROCEDURE: screening PREOP DIAGNOSIS: screening colonoscopy PLANNED PROCEDRUE: Operation Date: 03/22/21 10:15 Proposed Procedures p Colonoscopy 17459 z12.11(Not Applicable) - Mitchell Aguila MD Medications/Allergies* Home Medications Medication Instructions Recorded Confirmed Type citalopram [Celexa] 20 mg PO DAILY 10/17/19 03/19/21 History trazodone 100 mg PO BEDTIME 10/17/19 03/19/21 History Allergies/Adverse Reactions Allergy/AdvReac Type Severity Reaction Status Date / Time No Known Allergies Allergy Verified 03/17/20 11:48 Current Medications: Generic Name Dose Route Start Last Admin Trade Name Freq PRN Reason Stop Dose Admin Sodium Chloride 1,000 mls @ 30 mls/hr 03/22/21 09:15 03/22/21 09:27 Sodium Chloride 0.9% IV 03/23/21 09:14 30 mls/hr .Q24H DAVID Administration Pertinent History/Comorbid Conditions* Medical History (Updated 02/13/21 @ 00:00 by ) Depression Left renal stone Morbid obesity Umbilical hernia, incarcerated Ureteral calculus Surgical History (Updated 11/11/19 @ 07:50 by Paul Slaughter MD) Gastric bypass status for obesity H/O lithotripsy Hx of cholecystectomy Hx of laparoscopic gastric banding Hx of tonsillectomy Family History (Updated 10/28/19 @ 08:43 by Arminda Box LPN) Father, at age 66 Heart disease Father Emphysema of lung Mother COPD (chronic obstructive pulmonary disease) Mother Hypertension Mother Social History Smoking and tobacco status: never smoked Alcohol intake: never Marital status: Current occupational status: employed History of recent travel: No Pertinent Exam Findings alert, oriented x 3 and regular rate & rhythm Recommendations Surgery/Procedure today Coding Level of Care Code Acute Bituminous Distributor Operator for Samantha Shaw
[2021-03-22 10:52] VITALS: BP 149/94; PULSE 54; RESP 16; TEMP 36.4; O2SAT 100
[2021-03-22 11:06] VITALS: BP 161/102; PULSE 54; RESP 16; O2SAT 98
--- NOTE | 2021-03-22 14:00 | ANE.PACU2 ---
Inpatient post-anesthesia follow up: Airway intact: Yes Vital signs: Temperature 97.6 F Pulse Rate 54 Respiratory Rate 16 Blood Pressure 161/102 Pulse Oximetry 98 Oxygen Delivery Me thod Room Air Oxygen Flow Rate Fraction of Inspir ed Oxygen Hydration adequate: Yes Nausea and vomiting: No Pain level: 1 Mental status: Baseline
== END 2021-03-22 10:20 | disposition home or self-care (01) ==
PROVIDERS: PCP Family Medicine; Visit Provider Surgery
PROC: 0DJD8ZZ Inspection of Lower Intestinal Tract, Via Natural or Artificial Opening Endoscopic (ICD-10-PCS; CPT 45378; principal; 2021-03-22 10:15)
DX: Z12.11 Encounter for screening for malignant neoplasm of colon (principal); E66.01 Morbid (severe) obesity due to excess calories; Z68.42 Body mass index [BMI] 45.0-49.9, adult; Z98.84 Bariatric surgery status; I48.91 Unspecified atrial fibrillation
CPT/HCPCS: 45378; 96360; 96361; J2704; J7030

== ENCOUNTER → 2021-03-29 10:51 | Outpatient (BNVA) | payer BC, SELFPAY | PROVIDERS: PCP Family Medicine; Visit Provider Surgery | DX: Z20.822 Contact with and (suspected) exposure to COVID-19 (principal); Z11.52 Encounter for screening for COVID-19 | CPT/HCPCS: 87635 ==

== ENCOUNTER 2021-05-01 09:07 | Outpatient (CLI) | payer BC, SELFPAY ==
--- NOTE | 2021-05-01 09:17 | XR_ITS ---
WS: [id number] Exam: XR KUB [id number] Date/Time of Exam: 05/01/2021 9:17 AM Reason For Exam: STONES Comparison 11/25/2019. Calcifications superimpose both renal silhouettes and most likely represent renal calculi. No sign of bowel obstruction or free air. Mild ileus is noted. Signs of prior cholecystectomy. Single surgical clip in the central pelvis. No sign of organ enlargement. Bony structures are intact as visualized. XR/XR KUB [id number] IMPRESSION: 1. Calcifications superimpose both kidneys and likely represent renal stones. 2. Mild small bowel ileus.
== END 2021-05-01 09:08 | disposition home or self-care (01) ==
PROVIDERS: PCP Family Medicine; Visit Provider Urology
DX: N20.0 Calculus of kidney (principal); K56.7 Ileus, unspecified
CPT/HCPCS: 74018; 81003

== ENCOUNTER → 2021-06-28 08:15 | Outpatient (BNVA) | payer BC, SELFPAY | PROVIDERS: PCP Family Medicine; Visit Provider Surgery | DX: Z01.812 Encounter for preprocedural laboratory examination (principal) | CPT/HCPCS: 87635 ==

== ENCOUNTER 2021-07-04 05:42 | Day surgery (SDC) | payer BC, SELFPAY ==
[2021-07-03 09:52] VITALS: BMI 50.1
[2021-07-04] VITALS (8 sets, daily range): BP systolic 91–137; BP diastolic 46–88; PULSE 54–66; RESP 15–19; TEMP 36.1–36.8; O2SAT 92–98
[2021-07-04] MEDS: sodium chloride 0.9% 1,000 ML 30 ML IV (06:30)
--- NOTE | 2021-07-04 06:35 | ANES.PREANE2 ---
Pre-Anesthetic Assessment Pre-Anesthetic Assessment: Height/Weight: Height 1.73 m Weight 149.685 kg Temp Pulse Resp BP Pulse Ox 98.2 F 60 18 137/88 98 07/04/21 05:57 07/04/21 05:57 07/04/21 05:57 07/04/21 05:57 07/04/21 05:57 Preop Diagnosis: Umbilical hernia Proposed Procedure: Operation Date: 07/04/21 07:00 Proposed Procedures p Laparoscopic Umbilical Hernia Repair w/ Mesh 72421 K42.0(Not Applicable) - Mitchell Aguila MD Familial anesthetic complications: None Was Beta Michelle taken within 24 hours: Yes Was Clonidine taken within 24 hours: N/A Last intake: Intake Last Liquid Date 07/03/21 Last Liquid Time 20:00 Last Solid Date 07/03/21 Last Solid Time 18:00 Social: Social History: No alcohol and No tobacco Exam: Pre-Anes Outpt Exam: alert, oriented x 3, clear to auscultation bilaterally and regular rate & rhythm Airway: Cervical ROM: WNL MP: 2 Dentition: Full Pulmonary: Pulmonary: Asthma (rescue inhaler 2x a year) and None reported CV/HEM: CV/HEM: Afib Metabolic: Metabolic: Morbid obesity Anesthetic Plan: ASA status: 3 Anesthesia: General Risk of > 500 ml blood loss (7ml/kg in children): No Meds/Allergies Current Medications: Current Medications Generic Name Dose Route Start Last Admin Trade Name Freq PRN Reason Stop Dose Admin Sodium Chloride 1,000 mls @ 30 ml s/hr 07/04/21 06:00 07/04/21 06:30 Sodium Chloride 0.9% IV 07/05/21 05:59 30 mls/hr .Q24H DAVID Administration PFSH Anesthesia PFSH: Medical History Bilateral renal stones COVID-19 Depression Gross hematuria Left renal stone Morbid obesity Umbilical hernia, incarcerated Ureteral calculus Surgical History Gastric bypass status for obesity H/O lithotripsy Hx of cholecystectomy Hx of laparoscopic gastric banding Hx of tonsillectomy Status post colonoscopy (03/22/21) Family History Father , at age 66 Heart disease Mother Hypertension Emphysema of lung COPD (chronic obstructive pulmonary disease) Social History Smoking and tobacco status: never smoked Alcohol intake: never Marital status: Current occupational status: employed History of recent travel: No Data Anesthesia Cardiac Studies: No Data to Display
--- NOTE | 2021-07-04 06:52 | P.HP_ITS ---
Same Day Surgery H&P Indication for Procedure/HPI DATE OF PROCEDURE: July 04, 2021 CHIEF COMPLAINT/INDICATIONFOR SURGICAL PROCEDURE: umbillical hernia repair PREOP DIAGNOSIS: Umbilical hernia PLANNED PROCEDRUE: Operation Date: 07/04/21 07:00 Proposed Procedures p Laparoscopic Umbilical Hernia Repair w/ Mesh 68550 K42.0(Not Applicable) - Mitchell Aguila MD Medications/Allergies* Home Medications Medication Instructions Recorded Confirmed Type citalopram [Celexa] 20 mg PO DAILY 10/17/19 07/03/21 History trazodone 100 mg PO BEDTIME 10/17/19 07/03/21 History metoprolol tartrate 25 mg tablet 25 mg PO DAILY tab 05/01/21 07/03/21 History Allergies/Adverse Reactions Allergy/AdvReac Type Severity Reaction Status Date / Time No Known Allergies Allergy Verified 05/01/21 10:07 Current Medications: Generic Name Dose Route Start Last Admin Trade Name Freq PRN Reason Stop Dose Admin Sodium Chloride 1,000 mls @ 30 mls/hr 07/04/21 06:00 07/04/21 06:30 Sodium Chloride 0.9% IV 07/05/21 05:59 30 mls/hr .Q24H DAVID Administration Pertinent History/Comorbid Conditions* Medical History (Updated 05/01/21 @ 07:51 by Paul Slaughter MD) Bilateral renal stones COVID-19 Depression Gross hematuria Left renal stone Morbid obesity Umbilical hernia, incarcerated Ureteral calculus Surgical History (Updated 03/22/21 @ 10:49 by Mitchell Aguila MD) Gastric bypass status for obesity H/O lithotripsy Hx of cholecystectomy Hx of laparoscopic gastric banding Hx of tonsillectomy Status post colonoscopy (03/22/21) Family History (Updated 10/28/19 @ 08:43 by Arminda Box LPN) Father, at age 66 Heart disease Father Emphysema of lung Mother COPD (chronic obstructive pulmonary disease) Mother Hypertension Mother Social History Smoking and tobacco status: never smoked Alcohol intake: never Marital status: Current occupational status: employed History of recent travel: No Pertinent Exam Findings alert, oriented x 3 and regular rate & rhythm Recommendations Surgery/Procedure today Coding Level of Care Code Acute Storage Battery Inspector And Tester for Chg Colin
[2021-07-04] MEDS: ceFAZolin 3,000 MG in sodium chloride 0.9% (100 ml) 100 ML 200 MG IV (06:59)
--- NOTE | 2021-07-04 08:35 | SUR.OPER ---
Family Notified Of Patient's Status Via Phone.
[2021-07-04] MEDS: oxyCODONE-APAP 5-325 mg Tablet 1 TAB PO (10:24)
--- NOTE | 2021-07-04 15:02 | ANE.PACU2 ---
Inpatient post-anesthesia follow up: Airway intact: Yes Vital signs: Temperature 97.1 F Pulse Rate 66 Respiratory Rate 18 Blood Pressure 95/54 Pulse Oximetry 96 Oxygen Delivery Me thod Room Air Oxygen Flow Rate 6 Fraction of Inspir ed Oxygen Hydration adequate: Yes Nausea and vomiting: No Pain level: 3 Mental status: Baseline
--- NOTE | 2021-07-04 15:55 | PM.OP ---
Operative Report Date of procedure: July 04, 2021 Pre-op Diagnosis: Incarcerated umbilical hernia Pre-op Diagnosis: Morbid obesity with BMI of 50.2 Status post gastric bypass Post-op Diagnosis: Incarcerated umbilical hernia containing omentum with the defect measuring 6 x 6 cm Morbid obesity Status post gastric bypass Procedure Done: Laparoscopic repair of incarcerated umbilical hernia with Proceed mesh measuring 15 x 15 cm Pathology: none sent Surgeon: Mitchell Aguila Anesthesia: General Condition: stable Disposition: PACU Procedure: The patient was taken to the Operating Room and was intubated under general anesthesia after the antibiotic had been administered. The abdomen was prepped and draped in a sterile manner. Using a 15 blade, a 2-cm incision was made in the right upper quadrant in the anterior axillary line and pneumoperitoneum was created using Verres needle. A 10 mm Alondra port was placed and 15 mm of pneumoperitoneum was created after a 10 mm 30? scope had been introduced. 5 mm port was placed at the level of the umbilicus bilaterallly under direct visualization. Using a combination of electrocautery and scissors the peritoneum in the midline was taken down and the omental fat within the hernial sac was reduced. A spinal needle was introduced through the abdominal wall and the edges of the hernial defect were marked and measured 6x6 cm. A 4 cm margin was marked on the abdominal wall on the outer edge of the hernial defect. 15 x [address] mesh was selected and 4 separate 2-0 [place]-Octaviano sutures were placed at the 4 corners of the mesh. Grannie needle was passed through the stab incisions and used to grasp the free ends of the [place]-Octaviano sutures which were then used to pull the mesh up against the abdominal wall; 5 mm SecurStraps were placed 1 cm apart along the edge of the mesh to hold it against the abdominal wall. At the end of this, it was noted that the mesh was well positioned over the hernial defect. 20 cc of saline mixed with 20cc of Exparel mixed with 20cc of 0.5% Marcaine was infiltrated in the midclavicular line bilaterally under laparoscopic visualization for a TAP block. All ports were removed under direct visualization and there was no bleeding noted from the port sites. The external oblique aponeurosis was approximated at RUQ port site using figure of eight 0 Vicryl suture. The subcutaneous tissue was approximated using 3-0 Vicryl sutures. The skin at all 3 port sites was closed using subcuticular 4-0 Monocryl suture. The stab incisions and the port sites were covered with Dermabond. Abdominal binder was placed at the end of the procedure and the patient was extubated and transferred to recovery room in stable condition.
== END 2021-07-04 11:02 | disposition home or self-care (01) ==
PROVIDERS: PCP Family Medicine; Visit Provider Surgery
PROC: 0WQF4ZZ Repair Abdominal Wall, Percutaneous Endoscopic Approach (ICD-10-PCS; CPT 49653; principal; 2021-07-04 07:00)
DX: K42.0 Umbilical hernia with obstruction, without gangrene (principal); E66.01 Morbid (severe) obesity due to excess calories; Z68.43 Body mass index [BMI] 50.0-59.9, adult; Z98.84 Bariatric surgery status; I48.91 Unspecified atrial fibrillation
CPT/HCPCS: 49653; C9290; J0690; J1100; J2405; J2704; J3010; J3490; J7030

== ENCOUNTER 2022-01-25 08:43 | Outpatient (CLI) | payer OTHER, SELFPAY ==
--- NOTE | 2022-01-25 08:56 | XR_ITS ---
WS: [id number] XR knee RT 3V* [id number] REASON FOR EXAM: fall on rt knee FINDINGS: No fracture. Tibial plateaus appear intact. Medial and lateral knee joint spaces are relatively well preserved with mild subchondral sclerosis an d small osteophytosis. Degenerative changes in the tibial eminence suggesting previous ACL injury. Mild narrowing of the patellofemoral joint space widths subchondral sclerosis and moderate marginal o steophytosis of the patella. XR/XR knee RT 3V* [id number] IMPRESSION: No acute abnormality.
== END 2022-01-25 08:44 | disposition home or self-care (01) ==
PROVIDERS: PCP Family Medicine; Visit Provider Family Medicine Adult Medicine
DX: M25.561 Pain in right knee (principal); W19.XXXA Unspecified fall, initial encounter
CPT/HCPCS: 73562

== ENCOUNTER 2022-02-23 13:16 | Emergency (ER) | payer BC, SELFPAY ==
[2022-02-23] VITALS (8 sets, daily range): BP systolic 117–146; BP diastolic 67–82; PULSE 54–68; RESP 15–18; TEMP 36.6–37.1; O2SAT 97–100; BMI 49.4
--- NOTE | 2022-02-23 13:36 | ED_ITS ---
HPI - Abdominal Pain General: Chief Complaint: Abdominal Pain Stated Complaint: Abd pain Time Seen by Provider: 02/23/22 13:36 History of Present Illness: Ms. Rosario is a 51-year-old lady with history of kidney stones who presents to the emergency department due to abdominal symptoms. She endorses a few day history of intermittent abdominal discomfort associated with intermittent hematuria. Pain has been right lower quadrant and right flank. Sharp and stabbing in quality. Over the past 2 hours pain has been more constant. Intensity is moderate to severe. Feels similar to prior kidney stones. She has required operative management in the past. Subjective fevers chills associated with nausea vomiting which is nonbilious and nonbloody. No other specific changes in health, exacerbating, or alleviating factors identified. Pertinent past history: kidney stones Onset (ago): day(s) Pain Consistency: intermittent Location: RLQ Severity: severe Quality: stabbing and sharp Radiation: R flank Exacerbating factors: nothing Relieving factors: nothing Associated Symptoms: Reports chills, hematuria, nausea and vomiting Review of Systems General: Reports: 10 or more systems reviewed and unremarkable except in HPI and below Const: Reports: chills GI: Reports: nausea and vomiting : Reports: hematuria PFSH ED PFSH: Medical History Bilateral renal stones COVID-19 Depression Fall left shoulder and rt knee pain, fall 10 days ago, 01/15/2022 Gross hematuria Left renal stone Morbid obesity Umbilical hernia, incarcerated Ureteral calculus Surgical History Gastric bypass status for obesity H/O lithotripsy Hx of cholecystectomy Hx of laparoscopic gastric banding Hx of tonsillectomy Status post colonoscopy (03/22/21) Family History Father , at age 66 Heart disease Mother Hypertension Emphysema of lung COPD (chronic obstructive pulmonary disease) Social History Smoking and tobacco status: never smoked Alcohol intake: never Marital status: Current occupational status: employed History of recent travel: No Physical Exam Const: COMMON NORMALS: alert GENERAL APPEARANCE: cooperative, well developed and in distress (Uncomfortable appearing due to pain) HENMT: COMMON NORMALS: normocephalic and atraumatic HEAD & SCALP: normoc ephalic and atraumatic Eye: COMMON NORMALS: conjunctivae normal CONJUNCTIVA: Yes conjunctivae normal SCLERA: sclerae normal Neck/C-Spine: COMMON NORMALS: supple GENERAL: Yes trachea midline Resp: COMMON NORMALS: normal respiratory effort and clear to auscultation bilaterally EFFORT & INSPECTION: Yes able to speak in complete sentences AUSCULTATION: clear to auscultation bilaterally Cardio: COMMON NORMALS: regular rate and regular rhythm RATE: regular rate RHYTHM: regular rhythm GI: COMMON NORMALS: Soft to palpation PALPATION: Yes Soft to palpation, Yes Tenderness to palpation present (GI) Details: RLQ and other (Right flank), No Guarding due to palpation present (GI) and No Rigid due to palpation Extremity: GENERAL: Yes normal exam except as noted and No edema Neuro: COMMON NORMALS: moves all extremities SENSORIUM/ORIENTATION: Yes alert and No Orientation impaired Psych: COMMON NORMALS: mental status grossly normal and Normal thought process present THOUGHT PROCESS: Normal thought process present Course ED course: - Patient was seen and evaluated by me at bedside - Patient placed on cardiac monitors, IV access obtained - Initial evaluation notable for exam as above - Labs and xrays personally interpreted by me - Fluids, analgesia, and antiemetic given - Labs notable for no leukocytosis, normal hemoglobin. Metabolic panel with no acute electrolyte arrangement, renal function preserved. Urinalysis with hematuria without evidence of urinary tract infection. - Imaging notable for mild right hydroureteronephrosis with stranding and 8 mm distal right ureter calculus. - Upon serial reexamination after treatment the patient was improved with additional treatment including Flomax - Based on patient history, evaluation, and testing as interpreted the most likely cause of the patient's condition is ureteral lithiasis - The results of ED evaluation were discussed with the patient including prescriptions and/or symptomatic cares (if applicable) including appropriate and responsible use, followup plan, and return precautions. The patient verbalized understanding and felt safe for discharge. - Patient discharged in satisfactory condition. Note: Click bubbles or prepopulated vasquez in note writing are used for assistance with data collection and billing and are inherently more limited than narrative and other text portions of this note. Please use narrative for additional clinic al history and defer to narrative/free test for any case of contradictory information. If information appears in only free text or click bubble it should be considered present or absent as reported. Please contact note typewriter assembler for clarifications of clinical information or contradictory information. MDM is a brief summary, contradictory or erroneous seeming information should be clarified and full note should be reviewed. Vital Signs: Vital signs: Vital Signs Temperature 98.7 F 02/23/22 17:36 Pulse Rate 63 02/23/22 17:36 Respiratory Rate 16 02/23/22 17:36 Blood Pressure 117/67 02/23/22 17:36 Pulse Oximetry 97 02/23/22 17:36 Oxygen Delivery Me thod 02/23/22 17:14 MDM - Abdominal Pain Medical Decision Making 51-year-old lady presenting with flank pain found to have 8 mm distal ureter stone. Improved with treatment. No evidence of UTI or creatinine elevation. Satisfactory for outpatient management with urology follow-up given 8 mm size. Medical Records I reviewed the patient's medical records. Lab Data I reviewed the patient's lab results. : 02/23/22 14:00 02/23/22 14:00 Labs/Radiology: Radiology Impressions Abdomen/Pelvis CT 02/23/22 14:30 IMPRESSION: 1. Mild right-sided hydroureteronephrosis and perinephric/periureteral stranding, secondary to an 8 mm distal right ureteral calculus. 2. Additional findings, as above. Laboratory Results WBC 9.3 10^3/uL (4.0-10.0) 02/23/22 14:00 RBC 4.83 10^6/uL (4.1-5.3) 02/23/22 14:00 Hgb 13.7 g/dL (11.5-15.3) 02/23/22 14:00 Hct 44.0 % (37.0-47.0) 02/23/22 14:00 MCV 91.1 fl (81-99) 02/23/22 14:00 MCH 28.4 pg (28.0-34.0) 02/23/22 14:00 MCHC 31.1 g/dL (30.0-36.0) 02/23/22 14:00 RDW 14.5 % (12.1-15.1) 02/23/22 14:00 Plt Count 271 10^3/cmm (130-400) 02/23/22 14:00 MPV 10.7 fL (7.4-10.4) H 02/23/22 14:00 Neut % (Auto) 58.6 % 02/23/22 14:00 Lymph % (Auto) 30.5 % 02/23/22 14:00 [place] % (Auto) 7.4 % 02/23/22 14:00 Eos % (Auto) 2.3 % 02/23/22 14:00 Baso % (Auto) 0.9 % 02/23/22 14:00 Neut # (Auto) 5.45 10^3/uL (1.8-7.7) 02/23/22 14:00 Lymph # (Auto) 2.8 10^3/uL (0.8-4.8) 02/23/22 14:00 [place] # (Auto) 0.7 10^3/uL (0.2-0.9) 02/23/22 14:00 Eos # (Auto) 0.2 10^3/uL (0.0-0.8) 02/23/22 14:00 Baso # (Auto) 0.1 10^3/uL (0.0-0.1) 02/23/22 14:00 Nucleated RBC % (auto) 0 % 02/23/22 14:00 Nucleated RBCs # 0.0 /100WBC 02/23/22 14:00 Sodium 138 mmol/L (136-145) 02/23/22 14:00 Potassium 4.3 mmol/L (3.5-5.1) 02/23/22 14:00 Chloride 102 mmol/L (98-107) 02/23/22 14:00 Carbon Dioxide 26 mmol/L (22-29) 02/23/22 14:00 Anion Gap 14.3 (5-19) 02/23/22 14:00 BUN 16 mg/dL (6-20) 02/23/22 14:00 Creatinine 0.8 mg/dL (0.5-0.9) 02/23/22 14:00 GFR Calculation 75.6 mL/min (90-130) L 02/23/22 14:00 Glucose 98 mg/dL (65-115) 02/23/22 14:00 Calculated Osmolality 287 mOsm/kg (285-295) 02/23/22 14:00 Calcium 9.0 mg/dL (8.5-10.5) 02/23/22 14:00 Total Bilirubin 0.3 mg/dL (0.15-1.2) 02/23/22 14:00 AST 15 U/L (0-32) 02/23/22 14:00 ALT 11 U/L (0-33) 02/23/22 14:00 Alkaline Phosphatase 163 U/L (35-105) H 02/23/22 14:00 Total Protein 7.2 g/dL (6.6-8.7) 02/23/22 14:00 Albumin 3.7 g/dL (3.5-5.2) 02/23/22 14:00 Globulin 3.5 g/dL (1.3-4.6) 02/23/22 14:00 Lipase 28 U/L (13-60) 02/23/22 14:00 Urine Color Yellow (Yellow) 02/23/22 14:00 Urine Appearance Clear (CLEAR) 02/23/22 14:00 Urine pH 5 (5-7) 02/23/22 14:[address] 1.010 (1.005-1.030) 02/23/22 14:00 Urine Protein Neg (Negative) 02/23/22 14:00 Urine Glucose (UA) Norm (Normal) 02/23/22 14:00 Urine Ketones Negative (Negative) 02/23/22 14:00 Urine Blood 3+ (Negative) H 02/23/22 14:00 Urine Nitrate Negative (Negative) 02/23/22 14:00 Urine Bilirubin Neg (Negative) 02/23/22 14:00 Urine Urobilinogen Norm mg/dL (Negative) 02/23/22 14:00 Ur Leukocyte Esterase Negative (Negative) 02/23/22 14:00 Urine RBC 25-40 /hpf (0-2) H 02/23/22 14:00 Urine WBC None /hpf (0-5) 02/23/22 14:00 Ur Squamous Epith Cells Rare /hpf (0-5) 02/23/22 14:00 Amorphous Sediment Not Reportable 02/23/22 14:00 Urine Bacteria Trace /hpf (NONE) 02/23/22 14:00 Urine Mucus Trace /hpf 02/23/22 14:00 Discharge Plan Discharge Patient Disposition: Home Clinical Impression: Ureteral calculus Condition: Stable Prescriptions: New ondansetron 4 mg tablet,disintegrating 4 mg PO Q8H PRN (Reason: nausea and vomiting) Qty: 20 0RF Flomax 0.4 mg capsule 0.4 mg PO DAILY Qty: 14 0RF oxycodone 5 mg tablet 5 mg PO Q4H PRN (Reason: pain) Qty: 30 0RF No Action metoprolol tartrate 25 mg tablet 25 mg PO DAILY aspirin [Adult Low Dose Aspirin] 81 mg tablet,delayed release (DR/EC) 81 mg PO DAILY Zofran 4 mg tablet 4 mg PO Q6H PRN (Reason: nausea and vomiting) Qty: 20 0RF citalopram [Celexa] 20 mg Tablet 20 mg PO DAILY trazodone 100 mg tablet 100 mg PO BEDTIME Discharge Orders: Discharge ED (Routine); Ordered 02/23/22 Ordered By: Abdulaziz Jerez Referrals: Thanh Hall MD [Primary Care Provider] - Discharge Diet: Usual diet Discharge Activity: Increase activity as tolerated Patient Instructions: Kidney Stones (ED), How to Strain Your Urine (ED), Opioid Safety Activity Restrictions/Additional Instructions: Thank you for visiting the emergency department. You were seen and evaluated for flank pain. You are found to have a kidney stone 8 mm in the ureter which likely explain symptoms. The treatment for this is primarily symptomatic management with hopes that the kidney stone will pass. Given the size I will message case management for follow-up with urology. Please strain your urine. Please return to the emergency department for uncontrolled symptoms or anything else that you are concerned about and feel needs emergency department evaluation. Coding Level of Care Code ED Candy Spreader Helper for Samanhta Shaw Exam Comprehensive
[2022-02-23] MEDS: sodium chloride 0.9% 1,000 ML 999 ML IV (14:08)
[2022-02-23] MEDS: fentaNYL 50 mcg/mL INJ 2mL 75 MCG IVP (14:09)
[2022-02-23] MEDS: ondansetron 2 mg/ML SDV 2 mL 4 MG IVP (14:09)
[2022-02-23 14:13] LABS: Basophils # 0.1 10^3/uL (0.0-0.1); Basophils % 0.9 %; Eosinophils # 0.2 10^3/uL (0.0-0.8); Eosinophils % 2.3 %; Hemoglobin 13.7 g/dL (11.5-15.3); Lymphocytes # 2.8 10^3/uL (0.8-4.8); Lymphocytes % 30.5 %; Mean Corpuscular HGB Conc 31.1 g/dL (30.0-36.0); Mean Corpuscular Hemoglobin 28.4 pg (28.0-34.0); Mean Corpuscular Volume 91.1 fl (81-99); Mean Platelet Volume 10.7 fL (7.4-10.4); Monocytes # 0.7 10^3/uL (0.2-0.9); Monocytes % 7.4 %; Neutrophils # 5.45 10^3/uL (1.8-7.7); Neutrophils % 58.6 %; Nucleated Red Blood Cells % 0 %; Platelet Count 271 10^3/cmm (130-400); Red Blood Count 4.83 10^6/uL (4.1-5.3); Red Cell Distribution Width 14.5 % (12.1-15.1); White Blood Count 9.3 10^3/uL (4.0-10.0)
--- NOTE | 2022-02-23 14:30 | CTR_ITS ---
PROCEDURE INFORMATION: Exam: CT Abdomen And Pelvis Without Contrast Exam date and time: 02/23/2022 3:24 PM Age: 51 years old Clinical indication: Abdominal pain; Flank; Right; Additional info: Flank pain, hematuria TECHNIQUE: Imaging protocol: Computed tomography of the abdomen and pelvis without contrast. Axial, coronal and sagittal reformatted images were created and reviewed. Radiation optimization: All CT scans at this facility use at least one of these dose optimization techniques: automated exposure control; mA and/or kV adjustment per patient size (includes targeted exams where dose is matched to clinical indication); or iterative reconstruction. COMPARISON: CT kidney stone [id number] 03/12/2020 4:13 PM RADIATION DOSE METRICS: Total DLP (mGy-cm): 1292.53 FINDINGS: Liver: Mild hepatomegaly. Indeterminate 3.6 x 3.1 cm low-density lesion in the hepatic dome, similar to prior. 1.2 cm cyst in the left hepatic lobe. Gallbladder and bile ducts: Status post cholecystectomy. No biliary ductal dilatation. Pancreas: Unremarkable. Spleen: Coarse calcified splenic granulomata. Adrenal glands: Normal. No mass. Kidneys and ureters: Mild right-sided hydroureteronephrosis and perinephric/periureteral stranding, secondary to an 8 mm distal right ureteral calculus (axial image 197 and coronal image 93). Nonobstructing bilateral renal calculi. Stomach and bowel: Status post gastric bypass surgery. No obstruction. No bowel wall thickening. No pneumatosis. Appendix: Normal. Intraperitoneal space: No free fluid. No organized fluid collection. No free air. Vasculature: Unremarkable. No aneurysm. Lymph nodes: No pathologically enlarged lymph nodes. Urinary bladder: Unremarkable as visualized. Reproductive: Unremarkable. Bones/joints: No acute osseous abnormality. Osteopenia. Degenerative changes. Soft tissues: Fat containing umbilical hernia. CT/CT kidney stone [id number] IMPRESSION: 1. Mild right-sided hydroureteronephrosis and perinephric/periureteral stranding, secondary to an 8 mm distal right ureteral calculus. 2. Additional findings, as above.
[2022-02-23 14:36] LABS: Alanine Aminotransferase 11 U/L (0-33); Albumin Level 3.7 g/dL (3.5-5.2); Alkaline Phosphatase 163 U/L (35-105); Blood Urea Nitrogen 16 mg/dL (6-20); Carbon Dioxide 26 mmol/L (22-29); Chloride 102 mmol/L (98-107); Globulin 3.5 g/dL (1.3-4.6); Glomerular Filtration Rate 75.6 mL/min (90-130); Glucose 98 mg/dL (65-115); Lipase 28 U/L (13-60); Osmolality Calculated 287 mOsm/kg (285-295); Sodium 138 mmol/L (136-145); Total Bilirubin 0.3 mg/dL (0.15-1.2); Total Protein 7.2 g/dL (6.6-8.7)
[2022-02-23 14:37] LABS: Anion Gap 14.3 (5-19); Aspartate Amino Transferase 15 U/L (0-32); Potassium 4.3 mmol/L (3.5-5.1)
[2022-02-23 14:45] LABS: Add Urine Microscopic? YES; Bilirubin Urine Neg (Negative); Blood Urine 3+ (Negative); Glucose Urine UA Norm (Normal); Ketones Urine Negative (Negative); Leukocyte Esterase Urine Negative (Negative); Nitrate Urine Negative (Negative); Protein Urine Neg (Negative); Urine Appearance Clear (CLEAR); Urine Color Yellow (Yellow); Urobilinogen Urine Norm (Negative); pH Urine 5 (5-7)
[2022-02-23 14:46] LABS: RBC Urine 25-40 /hpf (0-2); Squamous Epithelial Cell Urine RARE /hpf (0-5)
[2022-02-23 14:47] LABS: Add Urine Culture? Yes; Bacteria Urine TRACE /hpf; Mucus Urine TRACE /hpf
[2022-02-23] MEDS: HYDROmorphone 1 mg/mL INJ 1 mL IVP (15:04)
[2022-02-23] MEDS: tamsulosin 0.4 mg Capsule PO (16:15)
[2022-02-23] MEDS: ketorolac 30 mg/mL INJ 15 MG IVP (16:16)
--- NOTE | 2022-02-26 09:39 | DCPLANNER ---
Addendum entered by Tracie Bird 03/22/22 11:44: Patient had a follow up appointment scheduled with urology - patient did attend appointment. Addendum entered by Tracie Bird 03/01/22 12:50: Patient has a follow up appointment scheduled for Friday, March 06, 2022 at 1:45 with Sarah Limon. Clinic will call patient with appointment information. Original Note: accreditation manager had message to schedule a follow up appointment for patient with urology. accreditation manager sent patients information to the front office staff at urology. Patients information will be printed and reviewed. Clinic will call patient with appointment information.
== END 2022-02-23 17:48 | disposition home or self-care (01) ==
PROVIDERS: Emergency Provider Emergency Medicine; PCP Family Medicine
DX: N20.1 Calculus of ureter (principal); Z79.82 Long term (current) use of aspirin
CPT/HCPCS: 74176; 80053; 81001; 83690; 85025; 87086; 96374; 96375; 99285; J1170; J1885; J2405; J3010; J7030

== ENCOUNTER 2022-03-06 12:38 | Outpatient (CLI) | payer BC, SELFPAY | END 2022-03-06 12:39 | disposition home or self-care (01) | LOC: RAD 12:39 | PROVIDERS: PCP Family Medicine; Visit Provider Urology | DX: N20.1 Calculus of ureter (principal); R31.0 Gross hematuria; N20.0 Calculus of kidney | CPT/HCPCS: 74018; 81003; 82365; 88300 ==

== ENCOUNTER 2022-05-21 12:32 | Outpatient (CLI) | payer BC, SELFPAY ==
--- NOTE | 2022-05-21 12:44 | XR_ITS ---
WS: [id number] Exam: XR KUB [id number] Date/Time of Exam: 05/21/2022 12:48 PM Reason For Exam: stones Comparison 03/06/2022. No bowel obstruction or free air. Calcifications superimpose both renal silhouettes and apparently re present known renal stones. No sign of organ enlargement. Postoperative changes noted in the right an d left abdomen and the pelvis. Bony structures are unremarkable. XR/XR KUB [id number] IMPRESSION: 1. No acute process noted. 2. Calcifications superimpose both kidneys and apparently represent known renal stones.
== END 2022-05-21 12:33 | disposition home or self-care (01) ==
LOC: RAD 12:34
PROVIDERS: PCP Family Medicine; Visit Provider Urology
DX: N20.0 Calculus of kidney (principal); R31.0 Gross hematuria
CPT/HCPCS: 74018; 81003; 87077; 87086; 87186

== ENCOUNTER 2022-11-21 13:07 | Outpatient (CLI) | payer BC, SELFPAY ==
--- NOTE | 2022-11-21 13:21 | XR_ITS ---
WS: [id number] KUB, AP view, 11/21/2022 Clinical Data: stones Comparison: KUB, 05/21/2022 Findings: No abnormal intraabdominal masses or calcifications are seen. There is no dilatated small bowel or ev idence of obstruction. There are clips in the right upper quadrant from a cholecystectomy. There are left upper quadrant bibiana gical clips. The bowel gas obscures detail over both kidneys. There is a single surgical clip in the true pelvis which looks like a fallopian tube occlusion device XR/XR KUB [id number] Impression: Negative KUB.
== END 2022-11-21 13:08 | disposition home or self-care (01) ==
LOC: RAD 13:11
PROVIDERS: PCP Family Medicine; Visit Provider Urology
DX: N20.0 Calculus of kidney (principal)
CPT/HCPCS: 74018; 81003

== ENCOUNTER 2023-04-19 16:32 | Emergency (ER) | payer OTHER, SELFPAY ==
[2023-04-19 16:33] VITALS: BP 131/72; PULSE 65; RESP 20; O2SAT 99; BMI 50.8
--- NOTE | 2023-04-19 16:34 | XRR_ITS ---
PROCEDURE INFORMATION: Exam: XR Chest Exam date and time: 04/19/2023 4:43 PM Age: 52 years old Clinical indication: Cough and dyspnea; Additional info: Dyspnea/cough TECHNIQUE: Imaging protocol: Radiologic exam of the chest. Views: 1 view. COMPARISON: CR XR chest 1V portable [id number] 02/05/2021 4:10 AM FINDINGS: Lungs: Unremarkable. No consolidation. Pleural spaces: Unremarkable. No pleural effusion. No pneumothorax. Heart/Mediastinum: Unremarkable. No cardiomegaly. Bones/joints: Unremarkable. XR/XR chest 1V portable [id number] IMPRESSION: No acute findings.
--- NOTE | 2023-04-19 16:45 | ECG_ITS ---
[facility] Test Date: 2023-04-19 Pat Name: Lacey Rosario Department: Room: Gender: Female Automotive Quality Engineer: : 1970 Requested By: Sam Trinh Order Number: [id number] Virgie MD: Ananth Fabian M.D. Measurements Intervals [place] Rate: 76 P: 68 [place]: 177 QRS: 63 QRSD: 97 T: 64 QT: 406 QTc: 457 Interpretive Statements SINUS RHYTHM Compared to ECG 02/05/2021 05:35:48 Atrial fibrillation no longer present Myocardial infarct finding no longer present Electronically Signed On 04-19-2023 21:27:50 CDT by Ananth Fabian M.D. [id number]
--- NOTE | 2023-04-19 16:47 | ED_ITS ---
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 On arrival here she is not in A-fib with RVR. She had taken some kind of xjru-cmu-bolnwrh medication that did not really relieve her symptoms. No recent fever sweats or chills she is awake and alert at this time no recent medication changes she denies chest pain. Shortness of breath has resolved. MD elicited complaint: shortness of breath Pertinent past history: other (Atrial fibrillation) Timing: constant Exacerbating factors: nothing Relieving factors: nothing Associated symptoms: Reports lightheadedness; Deny abdominal pain, chest congestion, chest pain, cough, diaphoresis, dizziness, extremity pain, fever(s), hemoptysis, myalgias, nausea, orthopnea, palpitations, paresthesias, polydipsia, polyuria, rash, sense of impending doom, syncope or vomiting Review of Systems Const: Reports: fatigue; Denies: fever(s), chills or diaphoresis Card: Reports: lightheadedness; Denies: chest pain, palpitations, irregular heart rhythm, edema, syncope or orthopnea Resp: Reports: dyspnea; Denies: productive cough, non-productive cough, hemoptysis or chest congestion GI: Denies: abdominal pain, nausea or vomiting : Denies: dysuria, urinary frequency or urinary urgency Musc: Denies: extremity pain Skin/Breast: Denies: rash Neuro: Denies: dizziness Endo: Denies: polyuria or polydipsia PFS ED PFSH: Medical History (Updated 04/19/23 @ 17:53 by Sam Linton DO) Bilateral renal stones COVID-19 Depression Fall left shoulder and rt knee pain, fall 10 days ago, 01/15/2022 Gross hematuria Morbid obesity Umbilical hernia, incarcerated Ureteral calculus Urolithiasis Multi stone former Bilateral primarily lower pole stones Periodic ureteral stones with spontaneous passage as well as endoscopic and ESWL intervention for some stones. Surgical History Gastric bypass status for obesity H/O lithotripsy Hx of cholecystectomy Hx of laparoscopic gastric banding Hx of tonsillectomy Status post colonoscopy (03/22/21) Family History Father , at age 66 Heart disease Mother Hypertension Emphysema of lung COPD (chronic obstructive pulmonary disease) Social History Alcohol intake: never Marital status: Physical Exam Const: COMMON NORMALS: no acute distress GENERAL APPEARANCE: cooperative and comfortable ORIENTATION/CONSCIOUSNESS: Yes awake, Yes oriented to person, Yes oriented to place and Yes oriented to time HENMT: COMMON NORMALS: normocephalic, atraumatic and hearing grossly normal bilaterally HEAD & SCALP: normocephalic and atraumatic Resp: COMMON NORMALS: normal respiratory effort, No retractions, No use of accessory muscles and clear to auscultation bilaterally AUSCULTATION: clear to auscultation bilaterally Cardio: COMMON NORMALS: regular rate, regular rhythm and No murmurs present (Cardio) RATE: regular rate RHYTHM: regular rhythm GI: COMMON NORMALS: Soft to palpation and No hepatosplenomegaly present AUSCULTATION: Yes normoactive bowel sounds PALPATION: Yes Soft to palpation, No Tenderness to palpation present (GI), No Guarding due to palpation present (GI) and Yes No hepatosplenomegaly present Extremity: COMMON NORMALS: normal to inspection, capillary refill normal, no clubbing, cyanosis or edema, no calf tenderness and no pedal edema Neuro: SENSORIUM/ORIENTATION: Yes oriented to person, Yes oriented to place and Yes oriented to time Skin: COMMON NORMALS: no rashes or lesions noted GENERAL SKIN EXAM: no rashes or lesions noted Course Vital Signs: Vital signs: Vital Signs Pulse Rate 70 04/19/23 18:01 Respiratory Rate 20 H 04/19/23 18:01 Blood Pressure 112/63 04/19/23 18:01 Pulse Oximetry 97 04/19/23 18:01 Oxygen Delivery Me thod Room Air 04/19/23 16:33 MDM - SOB/Dyspnea Medical Decision Making Symptoms improved. Brief episode occurred THC gummy. After patient had taken a she is feeling much better labs and imaging reviewed. We will discharge patient home no acute findings on EKG no ST elevation. Recheck if not improving. Medical Records I reviewed the patient's medical records. Lab Data I reviewed the patient's lab results. 04/19/23 16:50 04/19/23 16:50 Labs/Radiology: Radiology Impressions Chest X-Ray 04/19/23 16:34 IMPRESSION: No acute findings. Laboratory Results WBC 8.45 10^3/uL (3.29-11.43) 04/19/23 16:50 RBC 4.83 10^6/uL (3.85-5.65) 04/19/23 16:50 Hgb 13.90 g/dL (11.27-16.99) 04/19/23 16:50 Hct 43.0 % (36-47) 04/19/23 16:50 MCV 89.0 fl (85-98) 04/19/23 16:50 MCH 28.8 pg (27-33) 04/19/23 16:50 MCHC 32.3 g/dL (30-55) 04/19/23 16:50 RDW 15.0 % (12.1-15.1) 04/19/23 16:50 Plt Count 261 10^3/cmm (157-399) 04/19/23 16:50 MPV 10.3 fL (7.4-10.4) 04/19/23 16:50 Neut % (Auto) 43.6 % 04/19/23 16:50 Lymph % (Auto) 47.3 % 04/19/23 16:50 [place] % (Auto) 5.8 % 04/19/23 16:50 Eos % (Auto) 2.1 % 04/19/23 16:50 Baso % (Auto) 0.8 % 04/19/23 16:50 Neut # (Auto) 3.68 10^3/uL (1.8-7.7) 04/19/23 16:50 Lymph # (Auto) 4.0 10^3/uL (0.8-4.8) 04/19/23 16:50 [place] # (Auto) 0.5 10^3/uL (0.2-0.9) 04/19/23 16:50 Eos # (Auto) 0.2 10^3/uL (0.0-0.8) 04/19/23 16:50 Baso # (Auto) 0.1 10^3/uL (0.0-0.1) 04/19/23 16:50 Nucleated RBC % (auto) 0 % 04/19/23 16:50 Nucleated RBCs # 0.0 /100WBC 04/19/23 16:50 Sodium 139 mmol/L (136-145) 04/19/23 16:50 Potassium 3.7 mmol/L (3.5-5.1) 04/19/23 16:50 Chloride 101 mmol/L (98-107) 04/19/23 16:50 Carbon Dioxide 28 mmol/L (22-29) 04/19/23 16:50 Anion Gap 13.7 (5-19) 04/19/23 16:50 BUN 15 mg/dL (6-20) 04/19/23 16:50 Creatinine 0.7 mg/dL (0.5-0.9) 04/19/23 16:50 GFR Calculation 87.9 mL/min (90-130) L 04/19/23 16:50 Glucose 108 mg/dL (65-115) 04/19/23 16:50 Calculated Osmolality 289 mOsm/kg (285-295) 04/19/23 16:50 Calcium 9.4 mg/dL (8.5-10.5) 04/19/23 16:50 Total Bilirubin 0.4 mg/dL (0.15-1.2) 04/19/23 16:50 AST 17 U/L (0-32) 04/19/23 16:50 ALT 20 U/L (0-33) 04/19/23 16:50 Alkaline Phosphatase 150 U/L (35-105) H 04/19/23 16:50 Troponin T Baseline < 6 ng/L (0-10) 04/19/23 16:50 Total Protein 7.7 g/dL (6.6-8.7) 04/19/23 16:50 Albumin 4.5 g/dL (3.5-5.2) 04/19/23 16:50 Globulin 3.2 g/dL (1.3-4.6) 04/19/23 16:50 All radiology interpretation(s) finalized by discharge Discharge Plan Discharge Patient Disposition: Home Clinical Impression: Dyspnea, Nausea Condition: Stable Prescriptions: New promethazine 25 mg tablet 25 mg PO Q6H PRN (Reason: nausea and vomiting) Qty: 20 0RF No Action metoprolol tartrate 25 mg tablet 25 mg PO DAILY aspirin [Adult Low Dose Aspirin] 81 mg tablet,delayed release (DR/EC) 81 mg PO DAILY trazodone 100 mg tablet See Rx Instructions .ROUTE .COMPLEX Qty: 30 11RF Dose Instruction: TAKE 1 TABLET BY MOUTH EVERY EVENING Rx Instructions: TAKE 1 TABLET BY MOUTH EVERY EVENING citalopram 40 mg tablet See Rx Instructions .ROUTE .COMPLEX Qty: 30 11RF Dose Instruction: TAKE 1 TABLET BY MOUTH EVERY DAY Rx Instructions: TAKE 1 TABLET BY MOUTH EVERY DAY nitrofurantoin monohyd/m-cryst 100 mg capsule See Rx Instructions .ROUTE .COMPLEX Qty: 30 6RF Dose Instruction: take 1 capsule BY MOUTH TWICE DAILY WITH MEAL/FOOD Rx Instructions: take 1 capsule BY MOUTH TWICE DAILY WITH MEAL/FOOD Zofran 4 mg tablet 4 mg PO Q6H PRN (Reason: nausea and vomiting) Qty: 20 0RF ondansetron 4 mg tablet,disintegrating 4 mg PO Q8H PRN (Reason: nausea and vomiting) Qty: 20 0RF Flomax 0.4 mg capsule 0.4 mg PO DAILY Qty: 14 0RF oxycodone 5 mg tablet 5 mg PO Q4H PRN (Reason: pain) Qty: 30 0RF Discharge Orders: Discharge ED (Routine); Ordered 04/19/23 Ordered By: Sam Linton Referrals: Thanh Hall MD [Primary Care Provider] - Discharge Diet: Usual diet Discharge Activity: Increase activity as tolerated Patient Instructions: Opioid Safety, Pain Management Coding Level of Care Code ED Financial Services Counselor for Samantha Shaw
[2023-04-19 17:00] LABS: Basophils # 0.1 10^3/uL (0.0-0.1); Basophils % 0.8 %; Eosinophils # 0.2 10^3/uL (0.0-0.8); Eosinophils % 2.1 %; Lymphocytes % 47.3 %; Mean Corpuscular HGB Conc 32.3 g/dL (30-55); Mean Corpuscular Hemoglobin 28.8 pg (27-33); Mean Platelet Volume 10.3 fL (7.4-10.4); Monocytes # 0.5 10^3/uL (0.2-0.9); Monocytes % 5.8 %; Neutrophils # 3.68 10^3/uL (1.8-7.7); Neutrophils % 43.6 %; Nucleated Red Blood Cells % 0 %; Platelet Count 261 10^3/cmm (157-399); Red Blood Count 4.83 10^6/uL (3.85-5.65); White Blood Count 8.45 10^3/uL (3.29-11.43)
[2023-04-19 17:20] LABS: Alanine Aminotransferase 20 U/L (0-33); Albumin Level 4.5 g/dL (3.5-5.2); Alkaline Phosphatase 150 U/L (35-105); Anion Gap 13.7 (5-19); Aspartate Amino Transferase 17 U/L (0-32); Blood Urea Nitrogen 15 mg/dL (6-20); Calcium 9.4 mg/dL (8.5-10.5); Carbon Dioxide 28 mmol/L (22-29); Chloride 101 mmol/L (98-107); Globulin 3.2 g/dL (1.3-4.6); Glomerular Filtration Rate 87.9 mL/min (90-130); Glucose 108 mg/dL (65-115); Osmolality Calculated 289 mOsm/kg (285-295); Potassium 3.7 mmol/L (3.5-5.1); Sodium 139 mmol/L (136-145); Total Bilirubin 0.4 mg/dL (0.15-1.2); Total Protein 7.7 g/dL (6.6-8.7)
[2023-04-19 17:21] LABS: Troponin(5th) Baseline < 6 ng/L (0-10)
[2023-04-19 17:43] VITALS: BP 112/63; PULSE 65; RESP 19; O2SAT 98
[2023-04-19 18:01] VITALS: BP 112/63; PULSE 70; RESP 20; O2SAT 97
== END 2023-04-19 18:02 | disposition home or self-care (01) ==
PROVIDERS: Emergency Provider Family Medicine; PCP Family Medicine
DX: R06.00 Dyspnea, unspecified (principal); R11.0 Nausea; Z79.82 Long term (current) use of aspirin
CPT/HCPCS: 36415; 71045; 80053; 84484; 85025; 93005; 99285

== ENCOUNTER → 2023-04-29 09:00 | Outpatient (BNVA) | payer OTHER, SELFPAY | PROVIDERS: PCP Family Medicine; Visit Provider Nurse Practitioner Women's Health | DX: Z01.419 Encounter for gynecological examination (general) (routine) without abnormal findings (principal); Z12.4 Encounter for screening for malignant neoplasm of cervix; N89.8 Other specified noninflammatory disorders of vagina; Z12.39 Encounter for other screening for malignant neoplasm of breast | CPT/HCPCS: 87624 ==

== ENCOUNTER 2023-05-15 09:06 | Outpatient (CLI) | payer OTHER, SELFPAY ==
--- NOTE | 2023-05-15 09:30 | MM_ITS ---
WS: [id number] SCREENING DIGITAL TOMOSYNTHESIS MAMMOGRAM WITH CAD HISTORY: Z12.39 - Encounter for other screening for malignant neop... COMPARISON: 02/02/2018 Bilateral CC and MLO with tomosynthesis views submitted. Synthetic mammography reviewed. Computer aid ed detection analyzed. Breast composition: The breasts are almost entirely fatty. No suspicious masses, microcalcifications or architectural distortion. Bilateral intramammary lymph nodes. IMPRESSION: MM/[place] [id number] BI-RADS: 2-Benign FOLLOW UP: 1 Year Follow-up
== END 2023-05-15 09:07 | disposition home or self-care (01) ==
LOC: RAD 09:06
PROVIDERS: PCP Family Medicine; Visit Provider Nurse Practitioner Women's Health
DX: Z12.31 Encounter for screening mammogram for malignant neoplasm of breast (principal)
CPT/HCPCS: 77063; 77067

== ENCOUNTER 2025-04-03 09:18 | Emergency (ER) | payer BC, SELFPAY ==
--- OUTSIDE RECORDS SUMMARY | 2024-01-15 12:00 | XMS_ITS ---
Author Organization [facility] Address [address] [place] [address] Care Team Providers Care Degreasing Solution Reclaimer Name Role Phone Thanh Hall Primary Care Provider URBAN Man Unavailable [phone] Paul Slaughter Unavailable Unavailable REASON FOR VISIT 1 year w/CARISA/Dr. Slaughter patient Encounters Encounter Location Date Provider Diagnosis [facility] [address] [facility] [place] [address] 01/15/2024 URBAN ULLOA Plan Of Treatment No Information Progress Notes * Jennifer ROSARIOB:1970 ([age] yo F)Acc No.[id number]:01/15/2024 Progress Notes Patient: Lacey HOPKINS Provider: Stefanie ULLOA MD :1970 A ge:53 Y S ex:Female Date:01/15/2024 Address:[address] [place], [place] [id number] Pcp:Thanh Hall Subjective: * Chief Complaints: * 1 . 1 year w/CARISA/Dr. Slaughter patient. * Medical History: Objective: * Vitals: Assessment: Plan: * Treatment: * Billing Information: * Visit Code: * Procedure Codes: * Electronic signature of AUST IN MD LAILA on 04/03/2025 at 09:22 AM CDT Sign off status: Pending * Provider: Stefanie ULLOA MD Date: 01/15/2024 Generated for Jason puentes/Yan/eTransmitting on: 04/03/2025 09:22 AM CDT
--- OUTSIDE RECORDS SUMMARY | 2025-04-03 09:22 | XMS_ITS | Clinical Summary ---
Author Organization [facility] Address [address] [place] [address] Care Team Providers Care Flume Ride Operator Name Role Phone Unavailable Primary Care Provider Unavailabl e Allergies Active Allergy Reactions Criticality Noted Date Comments Erythromycin Unknown 05/14/2017 Medications citalopram (CELEXA) 20 mg Oral tablet Take 20 mg by mouth daily at bedtime. Active traZODone (DESYREL) 50 mg tablet Take 50 mg by mouth daily at bedtime. Active fexofenadine (ESME ALLERGY) 180 mg tablet Take by mouth daily. Active albuterol HFA 90 mcg inhaler Take 2 Puffs by inhalation every 6 hours as needed for Shortness of Breath. Active bismuth subsalicylate (PEPTO-BISMOL) 262 mg/15 mL suspension Take 15 mL by mouth every 6 hours. 7 Active calcium as carbonate (TUMS ES) 750 mg (300 mg elemental) Tablet, Chewable Take 2 Tablets (600 mg) by mouth every 6 hours as needed for Other (See Comment) (indigestion). 7 Active Active Problems Problem Noted Date Diagnosed Date Morbid obesity 08/30/2010 Status following gastric banding surgery for heather ght loss 08/30/2010 Depression 08/30/2010 Immunizations Immunization Administration Dates Next Due Influenza Seasonal Unspecified Formulation IM Family History Medical History Relation Name Comments Hypertension Brother Heart Disease Father Cancer Maternal Grandmother Diabetes Maternal Grandmother Hypertension Mother Diabetes Paternal Grandfather Relation Name Status Comments Brother Father Maternal Grandfather Maternal Grandmother Mother Alive Paternal Grandfather Paternal Grandmother Social History Tobacco Use Types Packs/Day Years Used Date Smoking Tobacco: Never Smokeless Tobacco: Never Alcohol Use Standard Drinks/Week Comments No 0 (1 standard drink = 0.6 oz pur e alcohol) Comments Unknown Sex and Gender Information Value Date Recorded Sex Assigned at Not on file Legal Sex Female 3:01 AM STILL CLEANER TUBE Gender Identity Not on file Sexual Orientation Not on file Last Filed Vital Signs Vital Sign Reading Time Taken Comments Blood Pressure 147/87 05/22/2017 10:40 AM STILL CLEANER TUBE Pulse 87 05/22/2017 10:40 AM STILL CLEANER TUBE Temperature 37.2 C (99 F) 05/22/2017 10:40 AM STILL CLEANER TUBE Respiratory Rate 18 05/22/2017 10:40 AM STILL CLEANER TUBE Oxygen Saturation 91% 05/22/2017 10:40 AM STILL CLEANER TUBE Inhaled Oxygen Concentration - - Weight 206.5 kg (455 lb 4 oz) 05/21/2017 5:56 AM STILL CLEANER TUBE Height 172.7 cm (5' 8 ) 05/21/2017 5:56 AM STILL CLEANER TUBE Body Mass Index 69.22 05/21/2017 5:56 AM STILL CLEANER TUBE Plan of Treatment Health Maintenance Due Date Last Done Comments Pre-Diabetes and Diabetes Screening 1970 DTAP/TDAP/TD VACCINES (1 - Tdap) 1989 HEPATITIS B VACCINES (1 of 3 - 19+ 3-dose series) 10/05 HPV/Cotest (21-29) 10/22/1991 CERVICAL CANCER SCREENING 2000 HPV/Cotest (30-65) 2000 PAP SMEAR 2000 BREAST CANCER SCREENING 2010 COLORECTAL SCREENING 10/22/2015 Colorectal Cancer Screening 10/22/2015 FIT-DNA Q 3 years 10/22/2015 FIT/FOBT Q 1 year 10/22/2015 Flex Sig/CT Colonography Q 5 years 10/22/2015 ZOSTER VACCINE (1 of 2) 2020 INFLUENZA VACCINE (#1) 2025 04/20/2017 Insurance [facility]
--- OUTSIDE RECORDS SUMMARY | 2025-04-03 09:22 | XMS_ITS | Clinical Summary ---
Author Organization [facility] Address [address] Attn: Epic [place] [address] Care Team Providers Care Biomass Boiler Operator Name Role Phone Unavailable Primary Care Provider Unavailabl e Allergies Active Allergy Reactions Criticality Noted Date Comments Erythromycin Unknown 05/14/2017 Medications bismuth subsalicylate (PEPTO-BISMOL) 262 mg/15 mL suspension Take 15 mL by mouth every 6 hours. Active calcium as carbonate (TUMS ES) 750 mg (300 mg elemental) Tablet, Chewable Take 2 Tablets (600 mg) by mouth every 6 hours as needed for Other (See Comment) (indigestion). Active fexofenadine (ESME) 180 mg tablet Take by mouth daily. Active albuterol sulfate 90 mcg/Actuation inhaler Take 2 Puffs by inhalation every 6 hours as needed for Shortness of Breath. Active traZODone (DESYREL) 50 mg tablet Take 50 mg by mouth daily at bedtime. Active Active Problems Problem Noted Date Diagnosed Date Morbid obesity 08/30/2010 Depression 08/30/2010 Status following gastric banding surgery for heather ght loss 08/30/2010 Immunizations Immunization Administration Dates Next Due [...] at Not on file Legal Sex Female 10:01 AM SHIFT STACKER Gender Identity Not on file Sexual Orientation Not on file Last Filed Vital Signs Vital Sign Reading Time Taken Comments Blood Pressure 147/87 05/22/2017 10:40 AM SHIFT STACKER Pulse 87 05/22/2017 10:40 AM SHIFT STACKER Temperature 37.2 C (99 F) 05/22/2017 10:40 AM SHIFT STACKER Respiratory Rate 18 05/22/2017 10:40 AM SHIFT STACKER Oxygen Saturation - - Inhaled Oxygen Concentration - - Weight 206.5 kg (455 lb 4 oz) 05/21/2017 5:56 AM SHIFT STACKER Height 172.7 cm (5' 8 ) 05/21/2017 5:56 AM SHIFT STACKER Body Mass Index 69.22 05/21/2017 5:56 AM SHIFT STACKER Plan of Treatment Health Maintenance Due Date Last Done Comments DTAP/TDAP/TD VACCINES (1 - Tdap) 1989 HEPATITIS [...]
--- OUTSIDE RECORDS SUMMARY | 2025-04-03 09:23 | XMS_ITS | Patient Health Record ---
Author Organization [facility] Address [address] [place] [address] Care Team Providers Care Eligibility Analyst Name Role Phone Thanh Hall Primary Care Provider Gilbert ULLOA URBAN Unavailable [phone] Paul Slaughter Unavailable Unavailable Reason For Referral No Information Problems Problem Type SNOMED Code ICD Code Onset Dates Problem Status W/U Status Risk Notes Problem Nephrolithiasis (49063285) Nephrolithiasis (N20.0) Active confirmed Plan Of Treatment Pending Test Test Name Order Date [id number] KUB, X-Ray: Abdomen, Kidney, Urete r, bladder 06/11/2023 Insurance Providers Payer Name Payer Address Payer Phone Subscriber Number Group Number Insured Name Patient Relationship to Insured Coverage Start Date Coverage End Date [place] [address] JEFRY HOMERBETTY [id number] AbrahamLacey Self - patient is the insured
[2025-04-03 09:25] VITALS: BP 126/86; PULSE 90; TEMP 36.9; O2SAT 97; BMI 50.9
--- NOTE | 2025-04-03 09:33 | ECG_ITS ---
[facility]25[facility] Pat Name: Lacey Rosario Department: Room: Gender: Female Clinical Nursing Coordinator: : 1970 Requested By: Ekaterina Trinh Order Number: [id number] Garvin MD: Felix Holbrook M.D. Measurements Intervals [place] Rate: 85 P: 0 ME: 0 QRS: 10 QRSD: 93 T: 16 QT: 365 QTc: 434 Interpretive Statements ATRIAL FIBRILLATION LOW QRS VOLTAGE IN PRECORDIAL LEADS [QRS DEFLECTION < 1.0 mV IN CHEST LEADS] POSSIBLE ANTERIOR MYOCARDIAL INFARCTION , PROBABLY OLD [30 ms Q WAVE IN V3/V4, OR R < 0.2 mV IN V4] ABNORMAL ECG INTERPRETATION BASED ON A DEFAULT AGE OF 40 YEARS Compared to ECG 04/19/2023 17:01:11 Sinus rhythm no longer present Electronically Signed On 04-03-2025 14:38:27 CDT by Felix Holbrook M.D. [id number]
--- NOTE | 2025-04-03 09:48 | W.ED.ARRPALP ---
HPI - Arrhythmia/Palpitations General: Chief Complaint: Arrhythmia/Palpitations Stated Complaint: rapid heartrate and fluttering Time Seen by Provider: 04/03/25 09:37 History of Present Illness: 54-year-old female with a history of morbid obesity, atrial fibrillation status post ablation 1 year ago and chronic anticoagulation on Eliquis who presents to the emergency room with palpitations. Symptoms started during the night. Says she feels lightheaded and dizzy. No chest pain. No abdominal pain. No nausea or vomiting. No altered mental status. Related Data Home Medications ?Medication ?Instructions ?Recorded ?Confirmed metoprolol tartrate 25 mg tablet 25 mg PO DAILY 05/01/21 05/27/23 aspirin 81 mg tablet,delayed 81 mg PO DAILY 01/25/22 05/27/23 release (Adult Low Dose Aspirin) Previous Rx's ?Medication ?Instructions ?Recorded estradiol 0.01% (0.1 mg/gram) See Rx Instructions .Route 07/01/23 vaginal cream .COMPLEX #42.5 grams trazodone 100 mg tablet See Rx Instructions .Route 08/20/24 .COMPLEX #30 tabs citalopram 40 mg tablet See Rx Instructions .Route 11/12/24 .COMPLEX #30 tabs cefdinir 300 mg capsule 300 mg PO BID 7 days #14 caps 04/03/25 Allergies Allergy/AdvReac Type Severity Reaction Status Date / Time No Known Allergies Allergy Verified 04/03/25 09:33 Review of Systems Narrative: Constitutional symptoms: Negative except as documented in HPI. Skin symptoms: Negative except as documented in HPI. Eye symptoms: Negative except as documented in HPI. ENMT symptoms: Negative except as documented in HPI. Respiratory symptoms: Negative except as documented in HPI. Cardiovascular symptoms: Negative except as documented in HPI. Gastrointestinal symptoms: Negative except as documented in HPI. Genitourinary symptoms: Negative except as documented in HPI. Musculoskeletal symptoms: Negative except as documented in HPI. Neurologic symptoms: Negative except as documented in HPI. Psychiatric symptoms: Negative except as documented in HPI. Endocrine symptoms: Negative except as documented in HPI. PFS ED PFSH: Medical History (Updated 04/03/25 @ 10:34 by Ekaterina Baltazar MD) Urolithiasis Multi stone former Bilateral primarily lower pole stones Periodic ureteral stones with spontaneous passage as well as endoscopic and ESWL intervention for some stones. Fall left shoulder and rt knee pain, fall 10 days ago, 01/15/2022 Gross hematuria Bilateral renal stones COVID-19 Umbilical hernia, incarcerated Morbid obesity Depression Ureteral calculus Surgical History Status post colonoscopy (03/22/21) H/O lithotripsy Hx of cholecystectomy Hx of tonsillectomy Hx of laparoscopic gastric banding Gastric bypass status for obesity Family History Father , at age 66 Heart disease Mother Hypertension Emphysema of lung COPD (chronic obstructive pulmonary disease) Social History Alcohol intake: never Marital status: Physical Exam Narrative: EXAM NARRATIVE: General: Alert, no acute distress. Skin: Warm, dry. Head: Normocephalic, atraumatic. Neck: Supple, trachea midline. Eye: Extraocular movements are intact. Ears, nose, mouth and throat: mucosa moist. Cardiovascular: Irregularly irregular, Normal peripheral perfusion. Respiratory: Lungs are clear to auscultation, respirations are non-labored, breath sounds are equal, Symmetrical chest wall expansion. Gastrointestinal: Soft, Nontender, Non distended Musculoskeletal: Normal ROM, no deformity. Neurological: Alert and oriented, No focal neurological deficit observed. Psychiatric: Cooperative, appropriate mood & affect. Course Vital Signs: Vital signs: Vital Signs Temperature 98.4 F 04/03/25 09:25 Pulse Rate 77 04/03/25 10:00 Respiratory Rate 17 04/03/25 10:00 Blood Pressure 167/92 04/03/25 10:00 Pulse Oximetry 92 04/03/25 10:00 Oxygen Delivery Me thod Room Air 04/03/25 09:25 MDM - Arrhythmia/Palpitations Medical Decision Making Medical decision making: Differential diagnosis including but not limited to and based on the above HPI, review of systems and physical exam: for patient with palpitations: atrial fibrillation with rapid ventricular response. ventricular tachycardia. sinus tachycardia. PVCs. also concern for underlying issues causing tachycardia. Infection, electrolyte abnormalities and thyroid issues. Orders placed to evaluate differential diagnosis based on the above differential, HPI and physical exam EKG: Time 9:28 AM. Rate 85 atrial fibrillation with controlled rate, No ST-T changes, no ectopy, This was reviewed and interpreted by myself the ER physician 9:32 AM Lab Review: Laboratory results were reviewed and interpreted by myself the emergency room physician. No leukocytosis. No anemia. No renal failure. Troponin negative. proBNP is mildly elevated. Urinalysis is positive for infection. Chest x-ray: No acute process. No infiltrate. No pneumothorax. Films were interpreted by myself the emergency room provider and pending final radiology review. I reviewed the patient's medical record. Reexamination: Patient has remained rate controlled while here. Blood pressure has been a little bit labile. Normotensive to hypertensive. No increased work of breathing. No altered mental status. Assessment and plan: Atrial fibrillation urinary tract infection - Discharged home - Discussed plan with patient. Answered any questions. - Evaluation and treatment of this problem were appropriate in the emergency setting. Lab Data 04/03/25 09:45 04/03/25 09:45 Laboratory Results WBC 5.39 10^3/uL (3.29-11.43) 04/03/25 09:45 RBC 4.50 10^6/uL (3.85-5.65) 04/03/25 09:45 Hgb 13.00 g/dL (11.27-16.99) 04/03/25 09:45 Hct 40.8 % (36-47) 04/03/25 09:45 MCV 90.7 fl (85-98) 04/03/25 09:45 MCH 28.9 pg (27-33) 04/03/25 09:45 MCHC 31.9 g/dL (30-55) 04/03/25 09:45 RDW 14.9 % (12.1-15.1) 04/03/25 09:45 Plt Count 201 10^3/cmm (157-399) 04/03/25 09:45 MPV 10.6 fL (7.4-10.4) H 04/03/25 09:45 Neut % (Auto) 46.6 % 04/03/25 09:45 Lymph % (Auto) 41.7 % 04/03/25 09:45 Crisp % (Auto) 7.4 % 04/03/25 09:45 Eos % (Auto) 2.6 % 04/03/25 09:45 Baso % (Auto) 1.5 % 04/03/25 09:45 Neut # (Auto) 2.51 10^3/uL (1.8-7.7) 04/03/25 09:45 Lymph # (Auto) 2.3 10^3/uL (0.8-4.8) 04/03/25 09:45 Crisp # (Auto) 0.4 10^3/uL (0.2-0.9) 04/03/25 09:45 Eos # (Auto) 0.1 10^3/uL (0.0-0.8) 04/03/25 09:45 Baso # (Auto) 0.1 10^3/uL (0.0-0.1) 04/03/25 09:45 Nucleated RBC % (auto) 0 % 04/03/25 09:45 Nucleated RBCs # 0.0 /100WBC 04/03/25 09:45 Sodium 145 mmol/L (136-145) 04/03/25 09:45 Potassium 3.7 mmol/L (3.5-5.1) 04/03/25 09:45 Chloride 109 mmol/L (98-107) H 04/03/25 09:45 Carbon Dioxide 26 mmol/L (22-29) 04/03/25 09:45 Anion Gap 13.7 (5-19) 04/03/25 09:45 BUN 13 mg/dL (6-20) 04/03/25 09:45 Creatinine 0.7 mg/dL (0.5-0.9) 04/03/25 09:45 GFR Calculation 87.2 mL/min (90-130) L 04/03/25 09:45 Glucose 88 mg/dL (65-115) 04/03/25 09:45 Calculated Osmolality 300 mOsm/kg (285-295) H 04/03/25 09:45 Calcium 8.8 mg/dL (8.5-10.5) 04/03/25 09:45 Magnesium 2.2 mg/dL (1.7-2.3) 04/03/25 09:45 Total Bilirubin 0.4 mg/dL (0.15-1.2) 04/03/25 09:45 AST 19 U/L (0-32) 04/03/25 09:45 ALT 15 U/L (0-33) 04/03/25 09:45 Alkaline Phosphatase 168 U/L (35-105) H 04/03/25 09:45 Troponin T Baseline 7 ng/L (0-10) 04/03/25 09:45 NT-Pro-B Natriuret Pep 1239 pg/mL (0-125) H 04/03/25 09:45 Total Protein 6.0 g/dL (6.6-8.7) L 04/03/25 09:45 Albumin 3.9 g/dL (3.5-5.2) 04/03/25 09:45 Globulin 2.1 g/dL (1.3-4.6) 04/03/25 09:45 TSH 2.94 uIU/mL (0.27-4.20) 04/03/25 09:45 Urine Color Yellow (Yellow) 04/03/25 09:51 Urine Appearance Cloudy (CLEAR) A 04/03/25 09:51 Urine pH 5.5 (5-7) 04/03/25 09:51 Ur Specific Blanchard 1.020 (1.005-1.030) 04/03/25 09:51 Urine Protein Trace (Negative) A 04/03/25 09:51 Urine Glucose (UA) Negative (Normal) 04/03/25 09:51 Urine Ketones Negative (Negative) 04/03/25 09:51 Urine Blood Non-haemolysed trace (Negative) 04/03/25 09:51 Urine Nitrate Negative (Negative) 04/03/25 09:51 Urine Bilirubin Negative (Negative) 04/03/25 09:51 Urine Urobilinogen 1.0 mg/dL (Negative) 04/03/25 09:51 Ur Leukocyte Esterase 2+ (Negative) A 04/03/25 09:51 Urine RBC 11-20 /hpf (0-2) H 04/03/25 09:51 Urine WBC 21-50 /hpf (0-5) H 04/03/25 09:51 Ur Squamous Epith Cells 11-20 /hpf (0-5) H 04/03/25 09:51 Calcium Oxalate Crystal 15-25 /hpf H 04/03/25 09:51 Amorphous Sediment Not Reportable 04/03/25 09:51 Urine Bacteria 4+ /hpf (NONE) H 04/03/25 09:51 Hyaline Casts 2.87 /lpf 04/03/25 09:51 XR interpretation done by ED provider, pending radiology final review Discharge Plan Discharge Patient Disposition: Home Clinical Impression: Atrial fibrillation, Urinary tract infection Condition: Stable Prescriptions: New cefdinir 300 mg capsule 300 mg PO BID 7 Days Qty: 14 0RF No Action metoprolol tartrate 25 mg tablet 25 mg PO DAILY aspirin [Adult Low Dose Aspirin] 81 mg tablet,delayed release (DR/EC) 81 mg PO DAILY estradiol 0.01 % (0.1 mg/gram) cream See Rx Instructions .ROUTE .COMPLEX Qty: 42.5 0RF Dose Instruction: USE ONE gram vaginally TWICE DAILY FOR 14 DAYS THEN USE twice weekly Rx Instructions: USE ONE gram vaginally TWICE DAILY FOR 14 DAYS THEN USE twice weekly trazodone 100 mg tablet See Rx Instructions .ROUTE .COMPLEX Qty: 30 11RF Dose Instruction: TAKE ONE TABLET BY MOUTH EVERY EVENING Rx Instructions: TAKE ONE TABLET BY MOUTH EVERY EVENING citalopram 40 mg tablet See Rx Instructions .ROUTE .COMPLEX Qty: 30 11RF Dose Instruction: TAKE 1 TABLET BY MOUTH DAILY Rx Instructions: TAKE 1 TABLET BY MOUTH DAILY Discharge Orders: Discharge ED (Routine); Ordered 04/03/25 Ordered By: Ekaterina Baltazar Referrals: Thanh Hall MD [Primary Care Provider, Family Practice] Patient Instructions: Opioid Safety, Pain Management, Patient Portal & Andre Instructions Activity Restrictions/Additional Instructions: Thank you for choosing [facility] for your healthcare needs today. You have been screened and evaluated and felt safe for discharge. Health conditions do change or evolve sometimes and as such it is important that you follow up with your Primary Doctor to be re checked, 3-5 days is a general good time frame for follow up. You are always welcome to return to the ED for re assessment if your symptoms are worsening or you have new concerns Print Language: Omani Coding Level of Care Code ED Clinical Investigator for Samantha Shaw
[2025-04-03 09:58] LABS: Glucose Urine UA Negative (Normal); Nitrate Urine Negative (Negative); Specific Gravity, Urine 1.020 (1.005-1.030)
[2025-04-03 09:59] LABS: Hematocrit 40.8 % (36-47); Hemoglobin 13.00 g/dL (11.27-16.99); Mean Corpuscular HGB Conc 31.9 g/dL (30-55); Mean Corpuscular Hemoglobin 28.9 pg (27-33); Mean Corpuscular Volume 90.7 fl (85-98); Nucleated Red Blood Cells % 0 %; Platelet Count 201 10^3/cmm (157-399); Red Blood Count 4.50 10^6/uL (3.85-5.65); White Blood Count 5.39 10^3/uL (3.29-11.43)
[2025-04-03 10:00] VITALS: BP 167/92; PULSE 77; RESP 17; O2SAT 92
[2025-04-03 10:11] LABS: UA Slide Review UA Slide Review Perf
[2025-04-03 10:15] LABS: Troponin(5th) Baseline 7 ng/L (0-10)
[2025-04-03 10:27] LABS: Alanine Aminotransferase 15 U/L (0-33); Albumin Level 3.9 g/dL (3.5-5.2); Alkaline Phosphatase 168 U/L (35-105); Anion Gap 13.7 (5-19); Aspartate Amino Transferase 19 U/L (0-32); Blood Urea Nitrogen 13 mg/dL (6-20); Calcium 8.8 mg/dL (8.5-10.5); Carbon Dioxide 26 mmol/L (22-29); Chloride 109 mmol/L (98-107); Creatinine Clr Calc Pharmacy 143.7651; Globulin 2.1 g/dL (1.3-4.6); Glucose 88 mg/dL (65-115); Magnesium 2.2 mg/dL (1.7-2.3); NT Pro B Type Natriuretic Pept 1239 pg/mL (0-125); Osmolality Calculated 300 mOsm/kg (285-295); Potassium 3.7 mmol/L (3.5-5.1); Sodium 145 mmol/L (136-145); Thyroid Stimulating Hormone 2.94 uIU/mL (0.27-4.20); Total Protein 6.0 g/dL (6.6-8.7)
[2025-04-03] MEDS: cefTRIAXone 1,000 mg SDV 1000 MG IVP (10:29)
--- NOTE | 2025-04-03 10:33 | XRR_ITS ---
PROCEDURE INFORMATION: Exam: XR Chest Exam date and time: 04/03/2025 10:49 AM Age: 54 years old Clinical indication: Other: Afib; Prior surgery; Surgery date: 6+ months; Surgery type: Cardiac ablation; Additional info: Rapid hr/fluttering; HX afib; Cardiac ablation 2023 TECHNIQUE: Imaging protocol: Radiologic exam of the chest. Views: 1 view. COMPARISON: CR XR chest 1V portable [id number] 04/19/2023 4:43 PM FINDINGS: Lungs: The lungs are clear. Pleural spaces: No pneumothorax or pleural effusion. Heart/Mediastinum: Heart size is enlarged. Mediastinal contours unremarkable. Bones/joints: No acute osseous or soft tissue abnormality. XR/XR chest 1V portable [id number] IMPRESSION: 1. The lungs are clear. 2. Cardiomegaly.
[2025-04-03] MEDS: metoprolol tartrate 1 mg/1 mL SDV 5 mL 5 MG IVP (10:57)
[2025-04-03 11:28] VITALS: BP 158/129; PULSE 84; O2SAT 99
== END 2025-04-03 11:29 | disposition home or self-care (01) ==
PROVIDERS: Emergency Provider Emergency Medicine; PCP Family Medicine
DX: I48.91 Unspecified atrial fibrillation (principal); N39.0 Urinary tract infection, site not specified; Z79.82 Long term (current) use of aspirin
CPT/HCPCS: 36415; 71045; 80053; 81001; 83735; 83880; 84443; 84484; 85025; 93005; 96361; 96374; 96375; 99285; J0696; J3490; J7040